=== PATIENT | male | born 1945 | race Caucasian/White ===

== ENCOUNTER 2021-04-04 11:00 | Outpatient (RCR) | payer MEDICARE, SELFPAY ==
[2021-04-04 11:08] VITALS: BMI 24.3
[2021-04-04 11:16] VITALS: BMI 24.3
== END 2021-06-05 12:29 | disposition home or self-care (01) ==
LOC: ANHDMC 11:00
PROVIDERS: PCP Family Medicine; Visit Provider Family Medicine
DX: E11.65 Type 2 diabetes mellitus with hyperglycemia (principal); Z71.89 Other specified counseling; Z71.3 Dietary counseling and surveillance
CPT/HCPCS: 97802; G0108

== ENCOUNTER 2021-10-17 10:50 | Outpatient (CLI) | payer MEDICARE, SELFPAY | END 2021-10-17 10:51 | disposition home or self-care (01) | LOC: ANHAUDIO 10:52 | PROVIDERS: PCP Family Medicine; Visit Provider Family Medicine | DX: H90.3 Sensorineural hearing loss, bilateral (principal) | CPT/HCPCS: 92557; 92567 ==

== ENCOUNTER 2022-01-08 10:05 | Outpatient (CLI) | payer MEDICARE, SELFPAY ==
[2022-01-08 10:53] LABS: Anion Gap 5 mmol/L (8-16); Blood Urea Nitrogen 49 mg/dL (9-20); Calcium 8.9 mg/dL (8.4-10.2); Carbon Dioxide 28 mmol/L (22-30); Chloride 106 mmol/L (98-107); Estimated Glomerular Filt Rate 35; Glucose 100 mg/dL (65-110); Potassium 4.9 mmol/L (3.4-5.0); Sodium 139 mmol/L (137-145)
== END 2022-01-08 10:06 | disposition home or self-care (01) ==
LOC: ANHSURGERY 10:10
PROVIDERS: Anesthesiology; PCP Family Medicine; Visit Provider Surgery
DX: Z01.818 Encounter for other preprocedural examination (principal); E11.65 Type 2 diabetes mellitus with hyperglycemia
CPT/HCPCS: 36415; 80048

== ENCOUNTER 2022-01-15 02:05 | Day surgery (SDC) | payer MEDICARE, SELFPAY ==
--- NOTE | 2022-01-04 14:20 | PC.NURSE ---
Addendum entered by Vesta Ramos RN 01/12/22 08:31: SPOKE TO PT'S , AWARE OF NEW DATE/TIME FOR SURGERY. NOTIFIED OF 0900 ARRIVAL, 1100 SURGERY, UP TO 20 OZ CLEAR LIQUIDS UNTIL 0800 AT THE LATEST. VERBALIZED UNDERSTANDING. Addendum entered by Nisa Wilkins RN 01/09/22 14:10: SURGERY RESCHEDULED TO Saturday01/16/22. INSTR PATIENT TO ARRIVE AT 6:30AM FOR SURGERY AT 8:30AM. INSTR TO TAKE NO MEDICATION MORNING OF SURGERY AND TO HOLD ALL VITAMINS/SUPPLEMENTS 3 DAYS PRE-OP- LAST DOSE 01/12/22. NO OTHER CHANGES IN PRE-OP INSTRUCTIONS. ALL REVIEWED WITH PATIENT. HE RELAYS UNDERSTANDING. HE STATES WILL CALL BACK IF SHE HAS QUESTIONS. Addendum entered by Tania Barajas RN 01/04/22 14:24: HIBICLENS SHOWER MORNING OF SURGERY Original Note: Report to the Outpatient Waiting Room, entrance under the [facility] located off [facility], at time 1000 on date _01/12/22 . OR Time: __1200___. - You and your visitor will be asked a series of questions to screen for COVID 19 for your protection. - A mask is required within the hospital. Preoperative COVID Testing Requirements: No COVID Test needed if: (proof is required; if not received patient will have Rapid Test prior to entry) - Patient has received COVID Vaccine at least 14 days prior to procedure date or - Patient has positive COVID test result within last 90 days of surgery date. COVID Test needed if above criteria is not met If not COVID vaccinated a COVID test must be conducted within 72 hours of surgery and patient is asked to isolate self from time of testing until procedure. You will go to the [facility] for your COVID testing. [facility] is located at the corner of [address] [facility]. You will only be called if COVID results are positive and your surgeon may reschedule your elective surgery date. Patients may have clear liquids (water, carbonated beverages, clear teas, apple juice) until 3 hours prior to surgery with a maximum of 20 ounces. - No food from midnight until time of surgery - Infants may have breast milk until 4 hours before surgery, formula 6 hours prior to surgery. - Children will be allowed to drink immediately following surgery. If applicable, please bring a bottle or sippy cup to assist with drinking. Juice, water, soda, and popsicles are readily available. For infants on formula, please bring formula the day of surgery. Pacifiers are allowed. Take the following medications with a SIP of water the morning of surgery: _NONE Medications to discontinue per physician __ALL VITAMINS AND SUPPLEMENTS 3 DAYS PRE OP Date to take last dose___01/08/22 Please no make-up, nail czech, hairspray, perfume, deodorant, or body powder the day of surgery. No jewelry (including any body piercings) or valuables the day of surgery, leave them at home. Please take a shower or bath the night before, or the morning of, surgery with an antibacterial soap. Wear comfortable, loose fitting clothing. Children are encouraged to wear pajamas. - Jewelry must be removed prior to entering the operating room. Rings and piercings that are not removed may be cut off. - The hospital will not accept responsibility for valuables. - Please leave all valuables, including medications, at home the day of surgery. If you are going home after surgery, a licensed services delivery driver must drive you home. - NO public transportation without another adult. - We recommend that an adult stay with you for 24 hours following discharge. - We also recommend that you do not drive, make important decision, drink alcoholic beverages, or take any drugs that were not prescribed by your health care provider for at least 24 hours after your discharge time. For Pediatric surgeries, we recommend two adults accompany the child home (only one inside the building at
[2022-01-04 14:30] VITALS: BMI 23.9
[2022-01-15] VITALS (8 sets, daily range): BP systolic 96–148; BP diastolic 59–76; PULSE 43–50; RESP 16–18; TEMP 36.2; O2SAT 100
--- NOTE | 2022-01-15 08:09 | WPDANESEPPF ---
Anes - Initial Pre Proc Eval Procedure: Operation Date: 01/15/22 11:00 Proposed Procedures p Right Inguinal Hernia Repair - Vicente Still MD Date/Time: 01/15/22 08:09 Surgeon: Vicente Still MD Pre Op Diagnosis: right inguinal hernia Patient Data Age: 76 Gender: M Height: 1.7 m Weight: 69.4 kg Allergies Allergy/AdvReac Type Severity Reaction Status Date / Time No Known Allergies Allergy Verified 01/15/22 09:21 Home Medications Medication Instructions Recorded Confirmed Type aspirin 81 mg tablet,delayed 81 mg PO DAILY 08/13/19 01/15/22 History release biotin 5 mg capsule 5 mg PO DAILY 08/13/19 01/15/22 History calcium 650 mg-vitamin D3 12.5 1 tablet PO DAILY 08/13/19 01/15/22 History mcg-vitamin K 40 mcg chewable tablet cholecalciferol (vitamin D3) 625 25,000 unit PO WEEKLY 08/13/19 01/15/22 History mcg (25,000 unit) capsule insulin human U-100 NPH-regulr See Rx Instructions SUBCUT DAILY 02/07/21 01/15/22 Rx 70-30 mix 100 unit/mL subcutaneous #30 ml susp insulin syringe-needle U-100 0.3 #100 02/07/21 01/15/22 Rx mL 29 gauge x 1/2 lancets #100 02/07/21 01/15/22 Rx blood sugar diagnostic #100 02/15/21 01/15/22 Rx blood-glucose meter #1 02/15/21 01/15/22 Rx atorvastatin 40 mg tablet 40 mg PO DAILY #90 tablet 06/05/21 01/15/22 Rx losartan 100 mg tablet 100 mg PO DAILY #90 tablet 11/22/21 01/15/22 Rx Patient hx anesthesia problems: none Family hx anesthesia problems: none Results Review: All pre-operative results and documents have been reviewed as part of the pre-operative evaluation. 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 Memory loss Pure hypercholesterolemia, unspecified Screen for colon cancer Screening for prostate cancer Toe pain Type 2 diabetes mellitus with hyperglycemia Surgical History Surgical History History of inguinal hernia repair [facility] 07/11 OA ASHLEY Family History Family History Sibling Family history of alcoholism Family history of lung cancer Father Family history of cardiovascular disease Other Diabetes mellitus Hypertension Social History Social History Smoking packs per day: 1 Smoking cigarettes per day: 20.0 Years smoked: 30 Smoking pack-years: 30.00 Smoking status: Former smoker Tobacco type: cigarettes Second hand tobacco smoke exposure: Yes Smoking end date: 09/23/85 Alcohol intake: current Substance use: never Substance use type: does not use Living arrangements: with family 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 Informed Consent: The patient's anesthetic plan and its attendant risks an
[2022-01-15] MEDS: ACETAMINOPHEN 500 MG TABLET 1000 MG PO (09:48)
[2022-01-15] MEDS: LACTATED RINGERS 1,000 ML 30 ML IV CONT ×2 (09:48→14:02)
[2022-01-15] MEDS: KETOROLAC 15 MG/ML VIAL (*BKC) IV PUSH (09:49)
[2022-01-15 09:54] LABS: Glucose Point of Care 86 mg/dl (65-105)
--- NOTE | 2022-01-15 11:10 | WPDHPUPDATE1 ---
History and Physical Update Update Date/Time: 01/15/22 11:10 History and Physical has been reviewed, including an updated exam of the patient. There are NO changes in the patient's condition. Risks, benefits, and alternatives of a an open right inguinal hernia repair have been discussed and questions answered. Patient agrees to proceed with procedure.
[2022-01-15] MEDS: ceFAZolin 2 GM/D5W 50 ML 2 GM/50 ML BAG IVPB (11:33)
--- NOTE | 2022-01-15 14:19 | W.PM.PROC2 ---
Procedure Note - Detailed Date of Procedure 01/15/22 Pre-op Diagnosis right inguinal hernia Post-op Diagnosis Other (Right indirect inguinal hernia (with incarcerated portion of appendix).) Procedure Performed Open right inguinal hernia repair with mesh (modified Tobin type) Surgeon Vicente Still MD Assembler Crimper FABIANO Hinkle, OR 1st assist Anesthesia Local (With 1% xylocaine with epinephrine mixed with 0.5% Marcaine plain) and Other (G IV S) Indications Bulging in pain with some activities Findings Patient had indirect inguinal hernia the medial side of the cord structures. Upon opening the hernia sac a portion of the appendix was found adhered to the inside of the indirect inguinal hernia sac. Description of Procedure The patient was placed in the supine position on the operating room table. After induction of adequate GIVS anesthesia by [facility] Anesthesia staff, we carefully prepped the entire lower abdomen with chlorhexidine and scrotum and penis with Betadine. One sterile towel was placed underneath the scrotum. Four towels were placed around the right lower quadrant. Following this, a time-out was performed with the surgical team and the patient's surgical procedure and site was confirmed. We then carefully outlined a curvilinear incision in the right groin area and a curvilinear incision was made after introducing a mixture of local anesthetic, using 0.5% Marcaine plain and 1% Xylocaine with epinephrine as both an ilioinguinal nerve block and at the incision site with a 25 gauge needle. Following this, I carefully made the incision, and carried it down through the subcutaneous tissue. Dee's fascia was incised and then we identified the external oblique aponeurosis and the external ring. Following this, the same mixture of local anesthetic was infiltrated underneath the external oblique aponeurosis and this was split in the direction of it's fibers with a #15 blade initially and then using Metzenbaum scissors. I then opened the external oblique through the external ring and incised this somewhat posteriorly and superiorly exposing the ilioinguinal nerve. This nerve was carefully preserved laterally and then I carefully and meticulously dissected out the cord structures at the level of the pubic tubercle. I then surrounded these structures at the level of pubic tubercle and placed a Wilfrido drain around them. I then carefully dissected the hernia sac up and off of the cord tissues on their anterior medial side, and brought it up and out of the incision. We carefully dissected the layers and cremasteric tissues off the hernia sac and then eventually opened the hernia sac. Holding this up with 4 hemostats, I carefully dissected it off the cord structures, being careful to avoid injury to the Pampiniform plexus veins, the spermatic artery and the vas. Interestingly, upon opening the sac it was noted that there were a few thin adhesions holding the tip of the non-inflamed appendix to the inside wall of the indirect hernia sac. These were carefully lysed and the appendix reduced back into the the abdomen. Once the hernia sac was carefully dissected back to the level of the internal ring, a transfixation suture of 2-0 silk was used to close the neck of the hernia sac and following this, a 2 - 0 silk tie was placed just below this, tied tight, and then distally the hernia sac was amputated with Bovie cautery. It was then passed off the field for pathologic evaluation. Following this, we took care to recreate an appropriate inguinal canal. This was done by carefully dissecting from the internal ring down to the pubic bone, and dissecting away any cremasteric tissue. A running suture of 0 Prolene was placed in the pubic tubercle and run up to the internal ring, approximating the Transversalis fascia to the ilioinguinal ligament. Once this was done, we then opened the Bard preshaped keyhole polypropylene mesh and I then
--- NOTE | 2022-01-15 14:47 | SUR.PHASEII ---
PATIENT AGITATED; REMOVED HIS PIV AND MONITORS, TRYING TO GET OFF THE STRETCHER. HERE NOW. PATIENT CALM NOW, ORIENTED X 3; NO LONGER AGITATED.
--- NOTE | 2022-01-15 15:57 | SUR.PHASEII ---
PATIENT DRINKING SEVERAL CUPS OF COFFEE. PATIENT WANTS TO WALK BUT IS ONLY ABLE TO STAND BRIEFLY; STILL A LITTLE WOBBLY.
[2022-01-15 17:17] LABS: Glucose Point of Care 146 mg/dl (65-105)
--- NOTE | 2022-01-15 17:26 | SUR.PHASEII ---
took pt over around 1700. pt urinated in bathroom. pt gait was a bit unstesdy. but after several walks with pt around outpt surgery area, his , myself and collegues, all saw his progression to baseline walking and we all feel comfortable with him going home.
== END 2022-01-15 17:45 | disposition home or self-care (01) ==
PROVIDERS: PCP Family Medicine; Visit Provider Surgery
PROC: (CPT 49505; principal; 2022-01-15 11:00)
DX: K40.90 Unilateral inguinal hernia, without obstruction or gangrene, not specified as recurrent (principal); K66.0 Peritoneal adhesions (postprocedural) (postinfection); I12.9 Hypertensive chronic kidney disease with stage 1 through stage 4 chronic kidney disease, or unspecified chronic kidney disease; N18.30 Chronic kidney disease, stage 3 unspecified; E11.65 Type 2 diabetes mellitus with hyperglycemia; E11.22 Type 2 diabetes mellitus with diabetic chronic kidney disease; H91.90 Unspecified hearing loss, unspecified ear; D64.9 Anemia, unspecified; Z79.4 Long term (current) use of insulin; Z79.82 Long term (current) use of aspirin; Z87.891 Personal history of nicotine dependence
CPT/HCPCS: 49505; 36415; 80048; 82948; 88302; A9270; C1781; J0690; J1100; J1885; J2250; J2370; J2405; J2704; J3010; J7120

== ENCOUNTER 2022-04-24 10:43 | Outpatient (CLI) | payer MEDICARE, SELFPAY ==
--- NOTE | ~2022-04-24 | MR_ITS ---
EXAMINATION: MR brain/brain stem wo con DATE: 04/24/2022 11:32 INDICATION: Memory loss. TECHNIQUE: Magnetic resonance imaging (MRI) of the brain and brainstem was performed without intraven ous contrast. COMPARISON: None. FINDINGS: There are scattered areas of nonspecific increased T2-weighted signal intensity in the cere bral white matter, which is within normal limits for the patient's age. There is no intracranial hemo rrhage, acute infarction, or abnormal intracranial mass lesion. The ventricles are normal in size. Th e paranasal sinuses are clear. The orbits are normal. The mastoid air cells are normal. IMPRESSION: 1. Normal aging brain. Reviewed, dictated and finalized at location A. IMPRESSION: 1. Normal aging brain.
== END 2022-04-24 10:44 | disposition home or self-care (01) ==
PROVIDERS: PCP Family Medicine; Visit Provider Family Medicine
DX: R41.3 Other amnesia (principal)
CPT/HCPCS: 70551

== ENCOUNTER 2022-12-24 15:22 | Emergency (ER) | payer MEDICARE, SELFPAY ==
[2022-12-24 16:21] VITALS: BP 119/62; PULSE 64; RESP 16; TEMP 36.9; O2SAT 99
--- NOTE | 2022-12-24 22:22 | PC.NURSE ---
Pt called for vitals, no answer
== END 2022-12-24 22:22 | disposition left against medical advice (07) ==
PROVIDERS: PCP Family Medicine
DX: S01.111A Laceration without foreign body of right eyelid and periocular area, initial encounter (principal)
CPT/HCPCS: 99199

== ENCOUNTER 2023-10-18 06:48 | Outpatient (CLI) | payer MEDICARE, SELFPAY ==
[2023-10-18 07:21] LABS: Hematocrit 38.8 % (42.0-52.0); Hemoglobin 12.4 g/dL (14.0-18.0); Mean Corpuscular Hemoglobin 32.2 pg (26-34); Mean Corpuscular Volume 100.8 fl (80-100); Mean Platelet Volume 9.4 fl (7.4-10.4); Platelet Count Result 152 k/mm3 (150-375); Red Blood Count 3.85 M/mm3 (4.6-6.20); Red Cell Distribution Width 13.2 % (11.5-14.5)
[2023-10-18 07:30] LABS: Alanine Aminotransferase 45 U/L (6-50); Albumin Level 3.7 g/dL (3.5-5.1); Alkaline Phosphatase 77 U/L (38-126); Aspartate Amino Transferase 46 U/L (17-59); Bilirubin,Total 0.8 mg/dL (0.2-1.3); Cholesterol 132 mg/dL (0-200); HDL Direct 55 mg/dL; Triglycerides 76 mg/dL (<150)
[2023-10-18 07:41] LABS: LDL Cholesterol Direct 68 mg/dL
[2023-10-18 07:50] LABS: Iron 134 ug/dL (49-181)
[2023-10-18 08:01] LABS: Prostate Specific Antigen 0.3 ng/mL (< OR = 4.0)
[2023-10-18 08:04] LABS: Percent Iron Saturation 48 % (20-50); Vitamin D 25 Hydroxy 40.1 ng/mL
[2023-10-18 09:19] LABS: Microalbumin Urine Random 763.6 mg/L (0-16.7)
== END 2023-10-18 06:49 | disposition home or self-care (01) ==
PROVIDERS: PCP Family Medicine; Visit Provider Family Medicine
DX: Z12.5 Encounter for screening for malignant neoplasm of prostate (principal); E78.2 Mixed hyperlipidemia; E55.9 Vitamin D deficiency, unspecified; N13.8 Other obstructive and reflux uropathy; N40.1 Benign prostatic hyperplasia with lower urinary tract symptoms; R80.9 Proteinuria, unspecified; D64.9 Anemia, unspecified; R74.8 Abnormal levels of other serum enzymes; E11.29 Type 2 diabetes mellitus with other diabetic kidney complication; I12.9 Hypertensive chronic kidney disease with stage 1 through stage 4 chronic kidney disease, or unspecified chronic kidney disease; N18.31 Chronic kidney disease, stage 3a; Z79.4 Long term (current) use of insulin; Z13.220 Encounter for screening for lipoid disorders
CPT/HCPCS: 36415; 80061; 80076; 82043; 82306; 82607; 83540; 83550; 84153; 84443; 85027; G0103

== ENCOUNTER 2023-12-02 15:38 | Emergency (ER) | payer MEDICARE, SELFPAY ==
[2023-12-02] VITALS (7 sets, daily range): BP systolic 103–134; BP diastolic 61–73; PULSE 54–61; RESP 12–18; TEMP 36.1–36.7; O2SAT 99–100
--- NOTE | ~2023-12-02 | CT_ITS ---
EXAMINATION: CT brain wo con DATE: 12/02/2023 19:10 INDICATION: difficulty walking . TECHNIQUE: Computed tomography (CT) of the head was performed without intravenous contrast. The mA wa s adjusted according to patient size. Iterative reconstruction technique was employed. The dose-lengt h product was 605.33 mGy-cm. COMPARISON: MRI brain 04/24/2022. FINDINGS: No acute intracranial hemorrhage or extra-axial fluid collection. No hydrocephalus, mass, or herniation. No acute ischemic infarct. Unremarkable dural venous sinus attenuation. No acute osseous abnormality. The aerated spaces are clear. Moderate atrophy and chronic white matter change. Atherosclerotic intracranial calcification. IMPRESSION: No acute intracranial process. Reviewed, dictated and finalized at location K.
--- NOTE | 2023-12-02 17:03 | ECG_ITS ---
Measurements Intervals Flora Rate: 59 P: 48 ME: 175 QRS: 50 QRSD: 98 T: 31 QT: 390 QTc: 388 Interpretive Statements SINUS BRADYCARDIA BASELINE ARTIFACT- I, III, AVR, AVL BORDERLINE ECG COMPARED TO ECG 07/10/2019 11:10:09 NO SIGNIFICANT CHANGES Electronically Signed On 12-02-2023 20:01:12 CDT by Maxim Mims D.O.
[2023-12-02 17:27] LABS: Basophils Percent Auto 0.4 % (0.2-1.2); Eosinophils Percent Auto 0.2 % (0-4.4); Hemoglobin 12.2 g/dL (14.0-18.0); Immature Granulocyte Absolute 0.06 K/mm3 (0.00-0.031); Immature Granulocyte Percent A 0.5 % (0-0.5); Lymphocytes Absolute Auto 0.63 K/mm3 (0.9-3.2); Lymphocytes Percent Auto 5.7 % (18.3-44.2); Mean Corpuscular HGB Conc 31.3 g/dl (32-36); Mean Corpuscular Hemoglobin 32.1 pg (26-34); Mean Corpuscular Volume 102.6 fl (80-100); Mean Platelet Volume 9.4 fl (7.4-10.4); Monocytes Absolute Auto 0.6 K/mm3 (0.1-0.6); Monocytes Percent Auto 5.3 % (2.6-8.5); Neutrophils Absolute Auto 9.8 K/mm3 (1.3-6.7); Neutrophils Percent Auto 87.9 % (45.5-73.1); Platelet Count Result 155 k/mm3 (150-375); Red Cell Distribution Width 13.4 % (11.5-14.5); White Blood Count 11.1 K/mm3 (4.5-10.0)
[2023-12-02 17:40] LABS: Alanine Aminotransferase 46 U/L (6-50); Albumin Level 3.9 g/dL (3.5-5.1); Alkaline Phosphatase 113 U/L (38-126); Anion Gap 2 mmol/L (8-16); Aspartate Amino Transferase 45 U/L (17-59); Bilirubin,Total 0.4 mg/dL (0.2-1.3); Blood Urea Nitrogen 47 mg/dL (9-20); Calcium 9.1 mg/dL (8.4-10.2); Carbon Dioxide 29 mmol/L (22-30); Chloride 108 mmol/L (98-107); Estimated CRCL calculation 27 ml/min; Estimated Glomerular Filt Rate 33; Glucose 118 mg/dL (65-110); Potassium 4.3 mmol/L (3.4-5.0); Sodium 139 mmol/L (137-145)
[2023-12-02 18:23] LABS: Appearance Urine Clear (Clear); Bacteria Urine None Seen /hpf; Bilirubin Urine Negative (Negative); Blood Urine Negative (Negative); Color Urine Yellow (Yellow); Glucose Urine UA Negative (Negative); Ketones Urine Negative (Negative); Leukocyte Esterase Ur Negative LEU/UL (Negative); Nitrate Urine Negative (Negative); Non Pathogenic Casts 0-2; Protein Urine 3+ mg/dL (Negative); RBC Urine 0-2 /hpf (0-2); Specific Grav Ur 1.018 (1.001-1.035); Squamous Epithelial Cell Urine None seen /hpf (Few); WBC Urine 0-5 /hpf
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
[2023-12-02 18:39] LABS: Add Urine Microscopic? YES
[2023-12-02] MEDS: SODIUM CHLORIDE 0.9% IV 1,000 ML 999 ML IV CONT (18:44)
--- NOTE | 2023-12-02 20:23 | PC.NURSE ---
Patient ambulated to the bathroom w/o assistance and tolerated well
== END 2023-12-02 21:17 | disposition home or self-care (01) ==
PROVIDERS: Emergency Provider Emergency Medicine; PCP Family Medicine
DX: R26.89 Other abnormalities of gait and mobility (principal); F03.90 Unspecified dementia, unspecified severity, without behavioral disturbance, psychotic disturbance, mood disturbance, and anxiety; I12.9 Hypertensive chronic kidney disease with stage 1 through stage 4 chronic kidney disease, or unspecified chronic kidney disease; E11.22 Type 2 diabetes mellitus with diabetic chronic kidney disease; N18.30 Chronic kidney disease, stage 3 unspecified; E78.00 Pure hypercholesterolemia, unspecified; D64.9 Anemia, unspecified; N40.0 Benign prostatic hyperplasia without lower urinary tract symptoms; Z87.891 Personal history of nicotine dependence; Z79.82 Long term (current) use of aspirin; Z79.4 Long term (current) use of insulin; R00.1 Bradycardia, unspecified
CPT/HCPCS: 36415; 70450; 80053; 81001; 85025; 93005; 96360; 99284; J7030

== ENCOUNTER 2024-01-07 10:59 | Outpatient (CLI) | payer MEDICARE, SELFPAY ==
[2024-01-07 12:07] LABS: Free T4 Free Thyroxine 0.76 ng/mL (0.78-2.19)
[2024-01-07 12:18] LABS: Thyroid Stimulating Hormone 0.077 uIU/mL (0.465-4.680)
[2024-01-07 13:00] LABS: Folic Acid > 20.0 ng/mL (2.76->20)
[2024-01-09 21:04] LABS: Vitamin B6 37.6 ng/mL (2.1-21.7)
== END 2024-01-07 11:00 | disposition home or self-care (01) ==
LOC: ANHLAB 11:06
PROVIDERS: PCP Family Medicine; Visit Provider Family Medicine
DX: D64.9 Anemia, unspecified (principal); F03.C0 Unspecified dementia, severe, without behavioral disturbance, psychotic disturbance, mood disturbance, and anxiety; N18.30 Chronic kidney disease, stage 3 unspecified; R41.3 Other amnesia; E11.29 Type 2 diabetes mellitus with other diabetic kidney complication; R80.9 Proteinuria, unspecified; Z79.4 Long term (current) use of insulin
CPT/HCPCS: 36415; 82607; 82746; 84207; 84439; 84443

== ENCOUNTER 2024-01-26 11:18 | Emergency (ER) | payer MEDICARE, SELFPAY ==
--- NOTE | ~2024-01-26 | CT_ITS ---
EXAMINATION: CT facial bones wo con DATE: 01/26/2024 12:14 INDICATION: Right face injury. TECHNIQUE: Computed tomography (CT) of the facial bones and maxillofacial region was performed withou t intravenous contrast. Automated exposure control and iterative reconstruction technique were employ ed. The dose-length product was 280.50 mGy-cm. COMPARISON: None. FINDINGS: Bone alignment is normal. No fracture. The orbits are normal. There is right face soft tiss ue swelling. There is mild mucosal thickening in the paranasal sinuses. The mastoid air cells are nor mal. There is severe cervical spondylosis. IMPRESSION: 1. No fracture. Reviewed, dictated and finalized at location A. IMPRESSION: 1. No fracture.
--- NOTE | ~2024-01-26 | XR_ITS ---
EXAMINATION: XR chest 1V portable DATE: 01/26/2024 13:24 INDICATION: Orthostatic hypotension. TECHNIQUE: A single frontal view of the chest was obtained. COMPARISON: None. FINDINGS: There is a diffuse interstitial pattern, consistent with mild pulmonary edema. No pleural e ffusion or pneumothorax. The heart size is normal. IMPRESSION: 1. Mild pulmonary edema. Reviewed, dictated and finalized at location A. IMPRESSION: 1. Mild pulmonary edema.
--- NOTE | ~2024-01-26 | CT_ITS ---
EXAMINATION: CT brain wo con DATE: 01/26/2024 12:14 INDICATION: Head injury. TECHNIQUE: Computed tomography (CT) of the head was performed without intravenous contrast. The mA wa s adjusted according to patient size. Iterative reconstruction technique was employed. The dose-lengt h product was 529.67 mGy-cm. COMPARISON: Head CT 12/02/2023 FINDINGS: There is no intracranial hemorrhage, acute infarction, or abnormal intracranial mass lesion . There are scattered areas of low attenuation in the cerebral white matter, which is within normal l imits for the patient's age. The ventricles are normal in size. There is mild mucosal thickening in t he paranasal sinuses. The mastoid air cells are normal. IMPRESSION: 1. Normal aging brain. Reviewed, dictated and finalized at location A. IMPRESSION: 1. Normal aging brain.
[2024-01-26 11:20] VITALS: BP 87/54; PULSE 88; RESP 18; TEMP 36.5; O2SAT 94
--- NOTE | 2024-01-26 11:27 | ECG_ITS ---
SEE SCANNED COPY FOR CONFIRMED REPORT MTDD
[2024-01-26] MEDS: SODIUM CHLORIDE 0.9% IV 1,000 ML 999 ML IV CONT ×2 (11:34→13:18)
[2024-01-26 11:37] LABS: Basophils Absolute Auto 0.1 K/mm3 (0.0-0.1); Basophils Percent Auto 0.6 % (0.2-1.2); Eosinophils Percent Auto 0.2 % (0-4.4); Hematocrit 36.4 % (42.0-52.0); Hemoglobin 11.9 g/dL (14.0-18.0); Immature Granulocyte Absolute 0.06 K/mm3 (0.00-0.031); Immature Granulocyte Percent A 0.7 % (0-0.5); Lymphocytes Absolute Auto 1.21 K/mm3 (0.9-3.2); Lymphocytes Percent Auto 14.4 % (18.3-44.2); Mean Corpuscular HGB Conc 32.7 g/dl (32-36); Mean Corpuscular Hemoglobin 32.7 pg (26-34); Mean Platelet Volume 9.3 fl (7.4-10.4); Monocytes Absolute Auto 0.6 K/mm3 (0.1-0.6); Neutrophils Absolute Auto 6.5 K/mm3 (1.3-6.7); Neutrophils Percent Auto 77.1 % (45.5-73.1); Platelet Count Result 157 k/mm3 (150-375); Red Blood Count 3.64 M/mm3 (4.6-6.20); Red Cell Distribution Width 13.1 % (11.5-14.5); White Blood Count 8.4 K/mm3 (4.5-10.0)
--- NOTE | 2024-01-26 11:38 | ED.FALL ---
HPI - Fall General Chief Complaint: Fall Stated Complaint: glf Time Seen by Provider: 01/26/24 11:22 History of Present Illness HPI Narrative: 78-year-old male presenting to the emergency department for evaluation after having a ground level fall. Patient was walking out of a restaurant and tripped over a curb. Patient did strike his face does have abrasions to his face. EMS was called. Upon arrival emergency department patient does a low blood pressure. Patient denies any recent illnesses. Patient denies any lightheaded or dizziness prior to the fall. Patient does have abrasions to his face but denies any pain or injury. Patient is present with both his and his daughter. states the patient does have an unusual gait at baseline. Related Data Home Medications Medication Instructions Recorded Confirmed aspirin 81 mg tablet,delayed 81 mg PO DAILY 08/13/19 09/05/23 release (Adult Aspirin Regimen) biotin 5 mg capsule 5 mg PO DAILY 08/13/19 09/05/23 calcium 650 mg-vitamin D3 12.5 1 tablet PO DAILY 08/13/19 09/05/23 mcg-vitamin K 40 mcg chewable tablet (Viactiv) cholecalciferol (vitamin D3) 625 25,000 unit PO WEEKLY 08/13/19 09/05/23 mcg (25,000 unit) capsule Allergies Allergy/AdvReac Type Severity Reaction Status Date / Time No Known Allergies Allergy Verified 12/09/23 10:11 Review of Systems Review of Systems: All systems reviewed & are unremarkable except as noted in HPI and below PMFSH Past Medical History Medical History Anemia BMI 23.0-23.9, adult BMI 24.0-24.9, adult BMI 25.0-25.9,adult BMI 26.0-26.9,adult Body mass index [BMI] 25.0-25.9, adult (04/07/19) Body mass index [BMI] 26.0-26.9, adult (07/02/18) Body mass index [BMI] 27.0-27.9, adult (11/15/17) BPH with obstruction/lower urinary tract symptoms Chronic kidney disease, stage III (moderate) Dementia Diabetes Dietary counseling and surveillance (08/07/16) Essential hypertension Hearing loss History of inguinal hernia IDDM (insulin dependent diabetes mellitus) Inguinal swelling Left inguinal hernia [facility] (current) use of insulin Memory loss Pure hypercholesterolemia, unspecified Screen for colon cancer Screening for prostate cancer Toe pain Type 2 diabetes mellitus with hyperglycemia Surgical History Surgical History History of inguinal hernia repair [facility] 07/11 OA ASHLEY History of right inguinal hernia repair Open right inguinal hernia repair with mesh (modified Tobin type) 01/15/22 Family History Family History Sibling Family history of alcoholism Family history of lung cancer Father Family history of cardiovascular disease Mother Dementia Sibling Lung cancer Tobacco abuse Diabetes mellitus Other Hypertension Social History Social History Smoking packs per day: 1 Smoking cigarettes per day: 20.0 Years smoked: 30 Smoking pack-years: 30.00 Smoking status: Former smoker (Quit 2009) Tobacco type: cigarettes Second hand tobacco smoke exposure: Yes Smoking end date: 09/23/85 Alcohol intake: former Substance use: never Substance use type: does not use Do You Feel Safe in your Home?: Yes Lack of Transportation: No Lack of Food: Never True Current Housing: I Have Housing Concerned About Future Housing: No Difficulty Paying Gas/Electric Bills: No Difficulty Paying for Meds: No Currently Unemployed: No Education: Master's Degree or Higher Living arrangements: with family Occupation/Education: retired 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
--- NOTE | 2024-01-26 12:00 | PC.NURSE ---
Pt to CT scan via stretcher at this time, family at bedside, fluids infusing.
[2024-01-26 12:07] LABS: Alanine Aminotransferase 39 U/L (6-50); Alkaline Phosphatase 128 U/L (38-126); Anion Gap 10 mmol/L (4-12); Aspartate Amino Transferase 37 U/L (17-59); Bilirubin,Total 0.7 mg/dL (0.2-1.3); Blood Urea Nitrogen 50 mg/dL (9-20); Calcium 9.5 mg/dL (8.4-10.2); Carbon Dioxide 19 mmol/L (22-30); Chloride 109 mmol/L (98-107); Estimated CRCL calculation 24 ml/min; Estimated Glomerular Filt Rate 29; Glucose 159 mg/dL (65-110); Potassium 4.6 mmol/L (3.4-5.0); Sodium 138 mmol/L (137-145)
[2024-01-26 12:43] VITALS: BP 101/59; PULSE 55
[2024-01-26 12:44] VITALS: BP 111/55; PULSE 73
[2024-01-26 12:45] VITALS: BP 102/62; PULSE 86
[2024-01-26 12:47] VITALS: BP 102/62; PULSE 75; RESP 20; O2SAT 98
[2024-01-26 13:39] LABS: Appearance Urine Clear (Clear); Bacteria Urine None Seen /hpf; Bilirubin Urine Negative (Negative); Blood Urine Negative (Negative); Color Urine Yellow (Yellow); Glucose Urine UA Negative (Negative); Ketones Urine Negative (Negative); Leukocyte Esterase Ur Trace LEU/UL (Negative); Nitrate Urine Negative (Negative); Protein Urine 2+ mg/dL (Negative); RBC Urine 0-2 /hpf (0-2); Specific Grav Ur 1.016 (1.001-1.035); Squamous Epithelial Cell Urine None Seen /hpf (Few); Urobilinogen Urine 0.2 mg/dL (<2.0); WBC Urine 0-5 /hpf (0-3); pH Urine 6.5 (5.0-9.0)
[2024-01-26 13:44] LABS: Add Urine Microscopic? YES
[2024-01-26 13:58] LABS: Influenza A QL RT-PCR Negative (Negative); Influenza B QL RT-PCR Negative (Negative); RSV RNA, RT-PCR Negative (Negative); SARS-CoV-2 RNA PCR Negative (Negative)
[2024-01-26 14:17] VITALS: BP 106/48; PULSE 54; RESP 18; O2SAT 100
== END 2024-01-26 14:50 | disposition home or self-care (01) ==
PROVIDERS: Emergency Provider Emergency Medicine; PCP Family Medicine
DX: S01.511A Laceration without foreign body of lip, initial encounter (principal); S00.81XA Abrasion of other part of head, initial encounter; Z11.52 Encounter for screening for COVID-19; F03.90 Unspecified dementia, unspecified severity, without behavioral disturbance, psychotic disturbance, mood disturbance, and anxiety; I12.9 Hypertensive chronic kidney disease with stage 1 through stage 4 chronic kidney disease, or unspecified chronic kidney disease; E11.22 Type 2 diabetes mellitus with diabetic chronic kidney disease; N18.30 Chronic kidney disease, stage 3 unspecified; E78.00 Pure hypercholesterolemia, unspecified; N40.1 Benign prostatic hyperplasia with lower urinary tract symptoms; D64.9 Anemia, unspecified; Z87.891 Personal history of nicotine dependence; Z79.82 Long term (current) use of aspirin; Z79.4 Long term (current) use of insulin; W10.1XXA Fall (on)(from) sidewalk curb, initial encounter
CPT/HCPCS: 12011; 36415; 70450; 70486; 71045; 80053; 81001; 85025; 87637; 93005; 96360; 96361; 99284; J7030

== ENCOUNTER 2024-02-19 11:41 | Outpatient (CLI) | payer MEDICARE, SELFPAY ==
[2024-02-19 12:30] LABS: Anion Gap 5 mmol/L (4-12); Blood Urea Nitrogen 39 mg/dL (9-20); Calcium 9.3 mg/dL (8.4-10.2); Carbon Dioxide 28 mmol/L (22-30); Chloride 106 mmol/L (98-107); Estimated Glomerular Filt Rate 37; Glucose 122 mg/dL (65-110); Potassium 4.8 mmol/L (3.4-5.0); Sodium 139 mmol/L (137-145)
[2024-02-19 13:02] LABS: Thyroid Stimulating Hormone 0.132 uIU/mL (0.465-4.680)
[2024-02-19 13:45] LABS: Folic Acid > 20.0 ng/mL (2.76->20)
[2024-02-22 11:37] LABS: Vitamin D 1,25 (OH)2 Total 20 pg/mL (18-72); Vitamin D2 1,25 (OH)2 <8 pg/mL; Vitamin D3 1,25 (OH)2 20 pg/mL
== END 2024-02-19 11:42 | disposition home or self-care (01) ==
LOC: ANHLAB 11:43
PROVIDERS: PCP Family Medicine; Referring Provider Nurse Practitioner Family; Visit Provider Psychiatry & Neurology Neurology
DX: G30.9 Alzheimer's disease, unspecified (principal); F02.818 Dementia in other diseases classified elsewhere, unspecified severity, with other behavioral disturbance; E55.9 Vitamin D deficiency, unspecified; E78.2 Mixed hyperlipidemia; N28.9 Disorder of kidney and ureter, unspecified
CPT/HCPCS: 36415; 80048; 82607; 82652; 82746; 84443

== ENCOUNTER 2024-03-31 14:30 | Outpatient (RCR) | payer MEDICARE, SELFPAY ==
--- NOTE | 2024-03-02 13:23 | OPREHPOC ---
Outpatient Therapy Plan of Care This is a Multidisciplinary Plan of Care that may contain components documented by all disciplines (PT, OT, and ST.) PT Problem 1 PT Problem #1 Knowledge Deficit PT Goal 1 Goal * and pt educated on HEP Target Visit 8 PT Problem 2 PT Problem #2 Impaired Strength PT Goal 1 Goal increase strength of trunk and LE's, to improve safety and mobility 1* with mat exercises, pt control motions x 20 reps Target Visit 8 PT Problem 3 PT Problem #3 Impaired Functional Mobility PT Goal 1 Goal improve balance and mobility skills, to decrease risk for further falls 1* Singleton balance score of 52/56 2* pt and report NO falls 3* with walking 300', pt have straight path Target Visit 8
--- NOTE | 2024-03-02 13:23 | PTOPEVAL1 ---
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 Reported Pain Level Pain Score 0: Self Report Assessment PT Clinical Summary Randal has the diagnosis of weakness and falls. He has fallen 4 times in the past 6 months. His medical history includes HTN, diabetes and dementia. His assists him at home and reports she only leaves him alone at home for 15- 20 min. LE functional scale rating of 58% limitation in activity level. With the evaluation, 5 reps sit/stand time of 14 seconds= normal; 2 minute walking test distance of 450'; Singleton balance score of 46/56; is is impulsive and has decreased safety awareness with mobility; with the mat exercises, he does not control his trunk or LE with the movements. He is cooperative and follows simple commands, with decreased body awareness of his movements. Skilled PT services are indicated for therapeutic exercises and activities to increase LE and trunk strength and motor control. With education for HEP and safety awareness. Plan of Care Interventions Gait Training,Neuro Re-education,Patient & Education,Therapeutic Activities,Therapeutic Exercise PT Services Indicated Yes Treatment Frequency and 2x/wk for 8 visits Duration These treatments will address the objective and functional deficits as defined above. The patient will be advanced safely and appropriately in order for the patient to progress towards his/her prior level of function. Additional exercises will be introduced and as well as a comprehensive home exercise program upon discharge, if needed, ?to ensure carryover of functional gains achieved in the clinic. This treatment plan has been reviewed and agreement upon by the patient.
--- NOTE | 2024-03-13 11:38 | PCPTNOTE ---
Pt. did not show for her appointment this date. Called pt. and pt. did not realize she had an appointment. Pt. was made aware of her next appointment on 03/16
--- NOTE | 2024-03-31 15:18 | PTOPDC ---
Assessment and note entered by Sherry Hernandez, PT Discharge Report Assessment Status Discharge Diagnosis falls, weakness Subjective Information have been doing the exercises at home; have not had any falls since coming for therapy; ok with finishing with therapy now; Reported Pain Level Pain Score 0: Self Report Assessment PT Clinical Summary Randal has received 8 PT sessions. Compared to the initial evaluation: Singleton balance test score from 46 to 52/56; increase strength and motor control with mat LE exercises; improved walking pattern-- more upright trunk and a straight path of walking; education completed with pt and for HEP. The goals were achieved. Discharge PT services. Plan of Care PT Services Indicated No
== END 2024-04-01 09:11 | disposition home or self-care (01) ==
LOC: ANHPT 14:30
PROVIDERS: PCP Family Medicine; Visit Provider Nurse Practitioner Family
DX: R53.1 Weakness (principal); W19.XXXA Unspecified fall, initial encounter
CPT/HCPCS: 97110; 97112; 97116; 97161; 97530

== ENCOUNTER 2024-05-17 18:18 | Emergency (ER) | payer MEDICARE, SELFPAY ==
[2024-05-17] VITALS (9 sets, daily range): BP systolic 146–166; BP diastolic 73–142; PULSE 57–62; RESP 12–17; TEMP 36.8; O2SAT 99–100
--- NOTE | ~2024-05-17 | CT_ITS ---
EXAMINATION: CT brain wo con DATE: 05/17/2024 19:33 INDICATION: Confusion . TECHNIQUE: Computed tomography (CT) of the head was performed [without] intravenous contrast. The mA was adjusted according to patient size. Iterative reconstruction technique was employed. The dose-orlin gth product was 605.33 mGy-cm. COMPARISON: 01/26/24. FINDINGS: No acute intracranial hemorrhage or extra-axial fluid collection. No hydrocephalus, mass, or herniation. No acute ischemic infarct. Unremarkable dural venous sinus attenuation. No acute osseous abnormality. The aerated spaces are clear. Moderate atrophy and mild chronic white matter change. Atherosclerotic intracranial calcification. IMPRESSION: No acute intracranial process. Reviewed, dictated and finalized at location K.
--- NOTE | 2024-05-17 19:07 | ED.GENADULT ---
HPI - General Adult General Chief complaint: Psychiatric Symptoms Stated complaint: SI-dementia Time Seen by Provider: 05/17/24 19:03 History of Present Illness HPI narrative: Patient is a 79-year-old male who presents to the emergency department this evening accompanied by his daughter and due to concern for worsening dementia. states that the patient was diagnosed with dementia approximately 3 years ago and within the past few weeks she has noticed a worsening decline. Patient is able to recognize that his daughter is present in the room with him when asked regarding his he states that she is a very pleasant lady and that their relationship is friends, good friends. states that he does not recognize her as his . Today he made a statement stating that he did not want to live anymore and if he had a gun he would shoot himself. When asked regarding these statements, patient denies all of them. Patient states that he does not have any suicidal or homicidal ideations, does not wish to harm himself or anyone else. Denies any history of suicidal homicidal ideations. No history of previous psychiatric admissions. He has no complaints at this time and states that he does not know why he is in the emergency department. No additional symptoms or concerns at this time. Related Data Home Medications Medication Instructions Recorded Confirmed aspirin 81 mg tablet,delayed 81 mg PO DAILY 08/13/19 03/18/24 release (Adult Aspirin Regimen) biotin 5 mg capsule 5 mg PO DAILY 08/13/19 03/18/24 calcium 650 mg-vitamin D3 12.5 1 tablet PO DAILY 08/13/19 03/18/24 mcg-vitamin K 40 mcg chewable tablet (Viactiv) cholecalciferol (vitamin D3) 625 25,000 unit PO WEEKLY 08/13/19 03/18/24 mcg (25,000 unit) capsule Allergies Allergy/AdvReac Type Severity Reaction Status Date / Time No Known Allergies Allergy Verified 03/16/24 10:09 Review of Systems Review of Systems: All systems are reviewed and are negative unless stated otherwise in the HPI. [facility] Past Medical History Medical History Anemia BMI 25.0-25.9,adult Body mass index [BMI] 25.0-25.9, adult (04/07/19) Body mass index [BMI] 26.0-26.9, adult (07/02/18) Body mass index [BMI] 27.0-27.9, adult (11/15/17) BPH with obstruction/lower urinary tract symptoms Chronic kidney disease, stage III (moderate) Dementia Dementia of Alzheimer's type with behavioral disturbance Diabetes Dietary counseling and surveillance (08/07/16) Essential hypertension Hearing loss History of inguinal hernia IDDM (insulin dependent diabetes mellitus) Inguinal swelling Left inguinal hernia assisted (current) use of insulin Memory loss Pure hypercholesterolemia, unspecified Right inguinal hernia Screen for colon cancer Screening for prostate cancer Toe pain Type 2 diabetes mellitus with diabetic nephropathy Type 2 diabetes mellitus with hyperglycemia Vitamin D deficiency Surgical History Surgical History History of inguinal hernia repair LIH 07/11 OA ASHLEY History of right inguinal hernia repair Open right inguinal hernia repair with mesh (modified Tobin type) 01/15/22 Family History Family History Sibling Family history of alcoholism Family history of lung cancer Father Family history of cardiovascular disease Mother Dementia Sibling Lung cancer Tobacco abuse Diabetes mellitus Other Hypertension Social History Social History Smoking packs per day: 1 Smoking cigarettes per day: 20.0 Years smoked: 30 Smoking pack-years: 30.00 Smoking status: Former smoker (Quit 2009) Tobacco type: cigarettes Second hand tobacco smoke exposure: Yes Smoking end date: 09/23/85 Alcohol intake:
[2024-05-17 20:40] LABS: Basophils Percent Auto 0.5 % (0.2-1.2); Eosinophils Percent Auto 0.4 % (0-4.4); Immature Granulocyte Absolute 0.04 K/mm3 (0.00-0.031); Immature Granulocyte Percent A 0.5 % (0-0.5); Lymphocytes Absolute Auto 1.41 K/mm3 (0.9-3.2); Lymphocytes Percent Auto 17.8 % (18.3-44.2); Mean Corpuscular HGB Conc 33.3 g/dl (32-36); Mean Corpuscular Hemoglobin 32.9 pg (26-34); Mean Corpuscular Volume 98.7 fl (80-100); Monocytes Absolute Auto 0.8 K/mm3 (0.1-0.6); Monocytes Percent Auto 9.7 % (2.6-8.5); Neutrophils Absolute Auto 5.6 K/mm3 (1.3-6.7); Neutrophils Percent Auto 71.1 % (45.5-73.1); Platelet Count Result 142 k/mm3 (150-375); Red Blood Count 3.95 M/mm3 (4.6-6.20); Red Cell Distribution Width 12.7 % (11.5-14.5); White Blood Count 7.9 K/mm3 (4.5-10.0)
[2024-05-17 20:46] LABS: Add Urine Microscopic? YES; Appearance Urine Clear (Clear); Bacteria Urine None Seen /hpf; Bilirubin Urine Negative (Negative); Blood Urine Negative (Negative); Color Urine Yellow (Yellow); Glucose Urine UA Negative (Negative); Ketones Urine Negative (Negative); Leukocyte Esterase Ur Negative LEU/UL (Negative); Nitrate Urine Negative (Negative); Non Pathogenic Casts 0-2; Protein Urine 2+ mg/dL (Negative); RBC Urine 0-2 /hpf (0-2); Specific Grav Ur 1.014 (1.001-1.035); Squamous Epithelial Cell Urine None Seen /hpf (Few); WBC Urine 0-5 /hpf (0-3)
[2024-05-17 20:52] LABS: Acetaminophen < 10 ug/mL (10-30); Ethanol < 10 mg/dL (<10); Salicylate < 1.0 mg/dL (2-20)
[2024-05-17 21:23] LABS: Thyroid Stimulating Hormone 0.141 uIU/mL (0.465-4.680)
[2024-05-17 22:06] LABS: Alanine Aminotransferase 38 U/L (6-50); Albumin Level 3.9 g/dL (3.5-5.1); Alkaline Phosphatase 83 U/L (38-126); Anion Gap 10 mmol/L (4-12); Aspartate Amino Transferase 36 U/L (17-59); Bilirubin,Total 0.4 mg/dL (0.2-1.3); Blood Urea Nitrogen 43 mg/dL (9-20); Calcium 9.2 mg/dL (8.4-10.2); Carbon Dioxide 23 mmol/L (22-30); Chloride 106 mmol/L (98-107); Estimated CRCL calculation 26 ml/min; Estimated Glomerular Filt Rate 35; Glucose 106 mg/dL (65-110); Sodium 139 mmol/L (137-145)
[2024-05-17 22:20] LABS: Amphetamine Screen Urine Negative (Negative); Barbiturate Screen Urine Negative (Negative); Benzodiazepines Screen Urine Negative (Negative); Cannabinoid Screen Urine Negative (Negative); Cocaine Screen Urine Negative (Negative); Methadone Screen Urine Negative (Negative); Opiate Screen Urine Negative (Negative); Phencyclidine Screen Urine Negative (Negative)
[2024-05-17 22:38] LABS: Influenza A QL RT-PCR Negative (Negative); Influenza B QL RT-PCR Negative (Negative); RSV RNA, RT-PCR Negative (Negative); SARS-CoV-2 RNA PCR Negative (Negative)
--- NOTE | 2024-05-17 23:46 | PC.NURSE ---
care and report given to FABIANO Gotti. all questions answered.
--- NOTE | 2024-05-17 23:47 | PC.NURSE ---
Crisis team came to ED at 2320 and made safety plan with patient. provided resources to family for any assistance with memory care.
== END 2024-05-18 01:23 | disposition home or self-care (01) ==
PROVIDERS: Emergency Provider Emergency Medicine; PCP Family Medicine
DX: F03.90 Unspecified dementia, unspecified severity, without behavioral disturbance, psychotic disturbance, mood disturbance, and anxiety (principal); Z20.822 Contact with and (suspected) exposure to COVID-19; D64.9 Anemia, unspecified; I12.9 Hypertensive chronic kidney disease with stage 1 through stage 4 chronic kidney disease, or unspecified chronic kidney disease; E11.22 Type 2 diabetes mellitus with diabetic chronic kidney disease; N18.30 Chronic kidney disease, stage 3 unspecified; Z79.4 Long term (current) use of insulin; E78.5 Hyperlipidemia, unspecified
CPT/HCPCS: 36415; 70450; 80053; 80307; 81001; 84443; 85025; 87637; 99284

== ENCOUNTER 2024-06-11 07:39 | Outpatient (CLI) | payer MEDICARE, SELFPAY ==
--- NOTE | ~2024-06-11 | US_ITS ---
EXAMINATION: US renal BI DATE: 06/11/2024 08:32 INDICATION: Stage IIIB chronic kidney disease TECHNIQUE: Multiple ultrasound grayscale images of the kidneys were obtained. COMPARISON: 03/14/2016 FINDINGS: The right kidney measures 9.0 x 5.1 x 4.6 cm. The left kidney measures 7.5 x 4.6 x 4.3 cm. The kidney s demonstrate normal echogenicity. There is no hydronephrosis in either kidney. No stones identified . Bilateral ureteral jets visualized mid bladder on color Doppler. No interval change in nodular impr ession upon the base of the bladder by the prostate which largely obscured by shadowing from the more anterior pubic bones. IMPRESSION: 1. Normal kidneys without hydronephrosis. 2. Stable appearance of nodular impression upon the base of the bladder by the partially obscured pro state. Reviewed, dictated and finalized at location B. IMPRESSION: 1. Normal kidneys without hydronephrosis. 2. Stable appearance of nodular impression upon the base of the bladder by the partially obscured prostate.
== END 2024-06-11 07:40 | disposition home or self-care (01) ==
PROVIDERS: PCP Family Medicine; Visit Provider Internal Medicine Nephrology
DX: N18.32 Chronic kidney disease, stage 3b (principal)
CPT/HCPCS: 76775

== ENCOUNTER 2024-08-25 09:44 | Outpatient (CLI) | payer MEDICARE, SELFPAY ==
[2024-08-25 10:19] LABS: Hematocrit 38.4 % (42.0-52.0); Hemoglobin 12.1 g/dL (14.0-18.0); Mean Corpuscular HGB Conc 31.5 g/dl (32-36); Mean Corpuscular Hemoglobin 31.9 pg (26-34); Mean Corpuscular Volume 101.3 fl (80-100); Mean Platelet Volume 9.2 fl (7.4-10.4); Platelet Count Result 159 k/mm3 (150-375); Red Blood Count 3.79 M/mm3 (4.6-6.20); Red Cell Distribution Width 13.2 % (11.5-14.5); White Blood Count 7.6 K/mm3 (4.5-10.0)
[2024-08-25 10:25] LABS: Add Urine Microscopic? YES; Appearance Urine Clear (Clear); Bacteria Urine None Seen /hpf; Bilirubin Urine Negative (Negative); Blood Urine Negative (Negative); Color Urine Yellow (Yellow); Glucose Urine UA Negative (Negative); Ketones Urine Negative (Negative); Leukocyte Esterase Ur Negative LEU/UL (Negative); Nitrate Urine Negative (Negative); Non Pathogenic Casts 0-2; Protein Urine 2+ mg/dL (Negative); RBC Urine 0-2 /hpf (0-2); Specific Grav Ur 1.017 (1.001-1.035); Squamous Epithelial Cell Urine None Seen /hpf (Few); Urobilinogen Urine 0.2 mg/dL (<2.0); WBC Urine 0-5 /hpf (0-3); pH Urine 5.5 (5.0-9.0)
[2024-08-25 10:31] LABS: Anion Gap 4 mmol/L (4-12); Blood Urea Nitrogen 50 mg/dL (9-20); Calcium 9.2 mg/dL (8.4-10.2); Carbon Dioxide 29 mmol/L (22-30); Chloride 107 mmol/L (98-107); Creatine Kinase 331 U/L (55-170); Estimated Glomerular Filt Rate 31; Glucose 163 mg/dL (65-110); Potassium 4.4 mmol/L (3.4-5.0); Sodium 140 mmol/L (137-145)
[2024-08-25 10:38] LABS: Complement C3 89 mg/dL (88-165)
[2024-08-25 10:40] LABS: Creatinine Urine 96.6 mg/dL; Total Protein Urine Random 87 mg/dL
[2024-08-25 10:44] LABS: Parathyroid Intact 29.7 pg/mL (14.5-75.2)
[2024-08-25 11:04] LABS: Erythrocyte Sedimentation Rate 19 mm/hr (0-20)
[2024-08-26 12:28] LABS: Complement Total CH50 >60 U/mL (31-60)
[2024-08-26 14:24] LABS: Lambda Light Chain 24.5 mg/L (5.7-26.3)
[2024-08-26 18:33] LABS: Immunofixation, Serum Normal pattern.
== END 2024-08-25 09:45 | disposition home or self-care (01) ==
LOC: ANHLAB 09:46
PROVIDERS: PCP Family Medicine; Visit Provider Internal Medicine Nephrology
DX: N18.32 Chronic kidney disease, stage 3b (principal); E78.2 Mixed hyperlipidemia
CPT/HCPCS: 36415; 80069; 81001; 82550; 82570; 83883; 83970; 84156; 85027; 85652; 86038; 86039; 86160; 86162; 86334

== ENCOUNTER 2024-08-28 11:32 | Outpatient (CLI) | payer MEDICARE, SELFPAY ==
[2024-08-28 13:21] LABS: Total Volume 24 Hour Urine 1350 ml; Urea Nitrogen 24 Hour Urine 9.8 G/DAY (12-20)
== END 2024-08-28 11:33 | disposition home or self-care (01) ==
PROVIDERS: PCP Family Medicine; Visit Provider Internal Medicine Nephrology
DX: N18.32 Chronic kidney disease, stage 3b (principal)
CPT/HCPCS: 81050; 84540; 86335

== ENCOUNTER 2024-12-31 08:32 | Outpatient (CLI) | payer MEDICARE, SELFPAY ==
--- OUTSIDE RECORDS SUMMARY | 2024-12-31 08:38 | XMS_ITS | Clinical Summary ---
Author Organization [facility] Address [address] [place] [phone] Phone Care Team Providers Care Vendor Manager Name Role Phone Unavailable Primary Care Provider Unavailabl e Medications atorvastatin (LIPITOR) 20 MG tablet 1 tab/cap qday 0 03/11/2017 Active losartan (COZAAR) 100 MG tablet 1 tab/cap qday 0 03/10/2017 Active insulin lispro protamine-insul in lispro (HumaLOG MIX 75/25) (75-25) 100 UNIT/ML suspension as directed 0 03/10/2017 Active Active Problems Problem Noted Date Diagnosed Date Chronic kidney disease, stage 3 (moderate) 03/11 Type 2 diabetes mellitus wit h other diabetic kidney complication 03/11/2017 Hypertensive chronic kidney disease with stage 1 through stage 4 chronic kidney disease, or unspecified chronic kidney disease 03/11/2017 Other hyperlipidemia 03/11/2017 Overview (12/06/2018): Converted unresolved ICD9, potential mismatch. Social History Tobacco Use Types Packs/Day Years Used Date Smoking Tobacco: Never Assessed Sex and Gender Information Value Date Recorded Sex Assigned at Not on file Legal Sex Male 8:07 AM [facility] Gender Identity Not on file Sexual Orientation Not on file Last Filed Vital Signs Vital Sign Reading Time Taken Comments Blood Pressure 134/76 06/19/2017 12:01 AM CDT Sitting, Right Pulse - - Temperature 36.4 C (97.6 F) 06/19/2017 12:01 AM CDT Respiratory Rate 18 03/11/2017 12:0 1 AM CDT Oxygen Saturation - - Inhaled Oxygen Concentration - - Weight 74.4 kg (164 lb) 06/19/2017 12:0 1 AM CDT Height 172.7 cm (5' 8 ) 06/19/2017 12:0 1 AM CDT Body Mass Index 24.94 06/19/2017 12:01 AM CDT Plan of Treatment Not on file
[2024-12-31 09:03] LABS: Hematocrit 37.2 % (42.0-52.0); Hemoglobin 11.8 g/dL (14.0-18.0); Mean Corpuscular HGB Conc 31.7 g/dl (32-36); Mean Corpuscular Hemoglobin 32.1 pg (26-34); Mean Corpuscular Volume 101.1 fl (80-100); Mean Platelet Volume 9.5 fl (7.4-10.4); Platelet Count Result 156 k/mm3 (150-375); Red Blood Count 3.68 M/mm3 (4.6-6.20); Red Cell Distribution Width 12.9 % (11.5-14.5); White Blood Count 7.1 K/mm3 (4.5-10.0)
[2024-12-31 10:37] LABS: Creatinine Urine 106.1 mg/dL; Total Protein Urine Random 88 mg/dL; Ur Ttl Prot Creatinine Ratio 0.83 mg/mg (0-0.20)
[2024-12-31 10:41] LABS: Anion Gap 10 mmol/L (4-12); Blood Urea Nitrogen 46 mg/dL (9-20); Calcium 9.2 mg/dL (8.4-10.2); Carbon Dioxide 24 mmol/L (22-30); Chloride 109 mmol/L (98-107); Estimated Glomerular Filt Rate 29; Glucose 150 mg/dL (65-110); Phosphorus 3.1 mg/dL (2.5-4.5); Potassium 4.5 mmol/L (3.4-5.0); Sodium 143 mmol/L (137-145)
[2024-12-31 11:20] LABS: Parathyroid Intact 33.6 pg/mL (14.5-75.2)
== END 2024-12-31 08:33 | disposition home or self-care (01) ==
PROVIDERS: PCP Family Medicine; Visit Provider Internal Medicine Nephrology
DX: E78.2 Mixed hyperlipidemia (principal); N18.32 Chronic kidney disease, stage 3b
CPT/HCPCS: 36415; 80069; 82570; 83970; 84156; 85027

== ENCOUNTER 2025-07-01 15:30 | Outpatient (CLI) | payer MEDICARE, SELFPAY ==
[2025-07-01 16:40] LABS: Hematocrit 39.2 % (42.0-52.0); Hemoglobin 12.6 g/dL (14.0-18.0); Mean Corpuscular HGB Conc 32.1 g/dl (32-36); Mean Corpuscular Hemoglobin 32.5 pg (26-34); Mean Corpuscular Volume 101.0 fl (80-100); Platelet Count Result 171 k/mm3 (150-375); Red Blood Count 3.88 M/mm3 (4.6-6.20); White Blood Count 8.2 K/mm3 (4.5-10.0)
[2025-07-01 16:51] LABS: Albumin Level 4.2 g/dL (3.5-5.1); Anion Gap 7 mmol/L (4-12); Blood Urea Nitrogen 40 mg/dL (9-20); Calcium 9.4 mg/dL (8.4-10.2); Carbon Dioxide 28 mmol/L (22-30); Chloride 104 mmol/L (98-107); Estimated Glomerular Filt Rate 31; Glucose 119 mg/dL (65-110); Potassium 4.3 mmol/L (3.4-5.0); Sodium 139 mmol/L (137-145)
[2025-07-01 17:03] LABS: Iron 109 ug/dL (49-181)
[2025-07-01 17:11] LABS: Percent Iron Saturation 38 % (20-50)
[2025-07-01 17:26] LABS: Parathyroid Intact 26.9 pg/mL (14.5-75.2)
[2025-07-01 17:43] LABS: Ferritin 111.00 ng/mL (11.1-264)
== END 2025-07-01 15:31 | disposition home or self-care (01) ==
PROVIDERS: PCP Family Medicine; Visit Provider Internal Medicine Nephrology
DX: N18.32 Chronic kidney disease, stage 3b (principal); D63.1 Anemia in chronic kidney disease
CPT/HCPCS: 36415; 80069; 82728; 83540; 83550; 83970; 85027

== ENCOUNTER 2025-07-02 12:14 | Outpatient (CLI) | payer MEDICARE, SELFPAY ==
[2025-07-02 12:56] LABS: Total Protein Urine Random 46 mg/dL; Ur Ttl Prot Creatinine Ratio 0.41 mg/mg (0-0.20)
[2025-07-02 13:19] LABS: MALB Creatinine Ratio 219.3 mg/g (0-30)
== END 2025-07-02 12:15 | disposition home or self-care (01) ==
PROVIDERS: PCP Family Medicine; Visit Provider Family Medicine
DX: E11.21 Type 2 diabetes mellitus with diabetic nephropathy (principal); Z79.4 Long term (current) use of insulin
CPT/HCPCS: 82043; 82570; 84156

== ENCOUNTER 2025-09-07 15:12 | Observation (INO) | payer MEDICARE, SELFPAY ==
--- NOTE | ~2025-09-07 | CT_ITS ---
EXAMINATION: CT brain wo con, 09/08/2025 17:40 INTERNAL CONTROLS ANALYST HISTORY: altered mental status COMPARISON: No comparisons available. Technique: Axial images obtained of the brain without contrast. One or more of the following dose reduction techniques were used: automated exposure control, adjustment of the mA and/or kV according to patient size, use of iterative reconstruction technique. Findings: No acute infarct or parenchymal hemorrhage. No abnormal mass or mass effect. No midline shift. No extra-axial fluid collections. No hydrocephalus. Mastoid air cells unremarkable. Sinuses and orbits unremarkable. No acute fracture. No significant facial or scalp soft tissue swelling evident. No radiopaque foreign body is seen. Impression: 1.No acute intracranial abnormality. Reviewed, dictated and finalized at location P. RNAL CONTROLS ANALYST Impression: 1.No acute intracranial abnormality.
--- NOTE | ~2025-09-07 | XR_ITS ---
XR chest 1V portable INDICATION:ams . REFERENCE: None FINDINGS: A single AP of the chest demonstrates normal heart size. The lungs are clear. There is no evidence of pneumothorax or pleural effusion. IMPRESSION: No acute pulmonary findings. Reviewed, dictated and finalized at location S. ON HEADER
--- NOTE | ~2025-09-07 | CT_ITS ---
CT brain wo con HISTORY:Altered mental status changes COMPARISON: CT head dating back to 12/02/2023. TECHNIQUE: Axial images were obtained of the head without intravenous contrast. FINDINGS: No acute intracranial hemorrhage, mass effect or midline shift. No extra-axial fluid collections. There is generalized atrophy and chronic white matter microangiopathic changes in the periventricular white matter.The calvarium is intact. Sclerotic lesion in the left mastoid is stable.Visualized paranasal sinuses and mastoid air cells are clear. IMPRESSION: No acute intracranial hemorrhage or extra axial fluid collections. All CT scans at this facility are performed using low dose modulation techniques as appropriate to perform exam including the following: automated exposure control; use of iterative reconstruction technique; adjustment of the mA and/or kV according to patient size (this includes techniques or standardized protocols for targeted exams where dose is matched to indication/reason for exam). Reviewed, dictated and finalized at location S. OPERATIONS SUPERVISOR IMPRESSION: No acute intracranial hemorrhage or extra axial fluid collections. All CT scans at this facility are performed using low dose modulation techniqu es as appropriate to perform exam including the following: automated exposure c ontrol; use of iterative reconstruction technique; adjustment of the mA and/or kV according to patient size (this includes techniques or standardized protocol s for targeted exams where dose is matched to indication/reason for exam).
[2025-09-07 15:22] VITALS: BP 136/67; PULSE 73; RESP 18; TEMP 36.4; O2SAT 100
--- NOTE | 2025-09-07 15:46 | ECG_ITS ---
Test Date: 2025-09-07 16:14:22 Measurements Intervals [place] Rate: 68 P: 52 NV: 174 QRS: 65 QRSD: 90 T: 40 QT: 382 QTc: 408 Interpretive Statements SINUS RHYTHM BORDERLINE T WAVE ABNORMALITY- ANTERIOR LEADS BASELINE ARTIFACT- I, III, AVR, AVL, AVF, V1-V4 BORDERLINE ECG No previous ECG available for comparison Electronically Signed On 09-07-2025 20:46:30 RELAY DISPATCHER by Maxim Mims D.O.
--- NOTE | 2025-09-07 15:55 | ED_ITS ---
HPI - Altered Mental Status General Chief Complaint: Altered Mental Status Stated Complaint: altered mental status Time Seen by Provider: 09/07/25 15:19 Source: family Mode of arrival: EMS Limitations: dementia History of Present Illness HPI narrative: This is a 80-year-old male with history of dementia, diabetes, CKD who presents the ED the mess from home for aggressive behavior. Per family, patient has become more aggressive over the last few days to the point that they are unable to take care of him. He does have a history of dementia and they have been able to take previously but getting much difficult to work with. Rehab once this time are wanting placed in a nursing. Related Data Home Medications ?Medication ?Instructions ?Recorded ?Confirmed ?Last Taken ?Type aspirin 81 mg tablet,delayed 81 mg PO DAILY 08/13/19 1 11/03/24 Unknown History release (Adult Aspirin Regimen) Allergies Allergy/AdvReac Type Severity Reaction Status Date / Time No Known Allergies Allergy Verified 09/02/25 07:27 Review of Systems 2 Review of Systems: ROS unobtainable: Yes unobtainable due to mental status PMFSH Past Medical History Medical History Type 2 diabetes mellitus with diabetic nephropathy Vitamin D deficiency Dementia of Alzheimer's type with behavioral disturbance BMI 25.0-25.9,adult Dementia BPH with obstruction/lower urinary tract symptoms Diabetes Right inguinal hernia Hearing loss Inguinal swelling Toe pain Memory loss Anemia Screen for colon cancer Left inguinal hernia Screening for prostate cancer Body mass index [BMI] 25.0-25.9, adult (04/07/19) Body mass index [BMI] 26.0-26.9, adult (07/02/18) Body mass index [BMI] 27.0-27.9, adult (11/15/17) Chronic kidney disease, stage III (moderate) Dietary counseling and surveillance (08/07/16) Essential hypertension IDDM (insulin dependent diabetes mellitus) detention (current) use of insulin Pure hypercholesterolemia, unspecified Type 2 diabetes mellitus with hyperglycemia History of inguinal hernia Surgical History Surgical History History of right inguinal hernia repair Open right inguinal hernia repair with mesh (modified Tobin type) 01/15/22 History of inguinal hernia repair LI 07/11 OA ASHLEY Family History Family History Sibling Family history of alcoholism Family history of lung cancer Father Family history of cardiovascular disease Mother Dementia Sibling Lung cancer Tobacco abuse Diabetes mellitus Other Hypertension Social History Social History Smoking packs per day: 1 Smoking cigarettes per day: 20.0 Years smoked: 30 Smoking pack-years: 30.00 Smoking status: Former smoker (Quit 2009) Tobacco type: cigarettes Second hand tobacco smoke exposure: Yes Smoking end date: 09/23/85 Alcohol intake: former Substance use: never Substance use type: does not use Lack of Transportation: No Lack of Food: Never True Current Housing: I Have Housing Concerned About Future Housing: No Difficulty Paying Gas/Electric Bills: No Difficulty Paying for Meds: No Currently Unemployed: No Education: Master's Degree or Higher Difficulty w/ Childcare or Family Care: No Living arrangements: with family Occupation/Education: retired 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 CARDIOVASCULAR: Regular rate and rhythm without murmurs rubs or gallops. ABDOMINAL: Soft, nontender, nondistended, no rebound or guarding MUSCULOSKELETAl: Moves all extremities. No clubbing, cyanosis or edema. NEURO: AAO x1, intermittently follows commands, normal speech, no focal deficits SKIN:: Warm, dry. No rashes lesions or abrasions PSYCHIATRIC: Normal affect/mood, Course Vital Signs Vital signs: Vital Signs Temperature 97.6 F 09/07/25 15:22 Pulse Rate 73 09/07/25 15:22 Respiratory Rate 18 09/07/25 15:22 Blood Pressure 136/67 09/07/25 15:22 Pulse Oximetry 100 09/07/25 15:22 Oxygen Delivery Room Air 09/07/25 15:22 Temperature 97.6 F 09/07/25 16:01 Pulse Rate 66 09/07/25 16:01 Respiratory Rate 20 09/07/25 16:01 Blood Pressure 131/59 L 09/07/25 16:01 Pulse Oximetry 96 09/07/25 16:01 Oxygen Delivery Room Air 09/07/25 15:22 [facility] Narrative Medical decision making narrative: 80-year-old male Presenting for agitated behavior and senior care placement. On initial evaluation patient was in no acute distress afebrile, hemodynamic stable. Differentials include but are not limited to: Dementia, delirium, UTI, electrolyte abnormality Notable exam findings: A/O x1, no focal deficits I personally reviewed the patient's lab result. Notable lab findings: Anemia at 10.8 down from 12.6 couple months ago. Stable elevated creatinine at 2.1. UA without evidence of a UTI. I personally reviewed the patient's EKGs: Normal sinus rhythm, normal axis, normal intervals, no acute ST or T-wave changes No other complaints for the patient at this time. Family is wanting him placed in a senior care given his increasing agitated behavior. Patient is not agitated at this time. Case was discussed with hospitalist who will admit the patient. Differential Diagnosis Differential Diagnosis: Dementia, delirium, UTI, electrolyte abnormality Lab Data 09/07/25 15:54 09/07/25 15:54 Labs: Lab Results 09/07/25 Range/Units 15:54 WBC 7.4 (4.5-10.0) K/mm3 RBC 3.34 L (4.6-6.20) M/mm3 Hgb 10.8 L (14.0-18.0) g/dL Hct 34.1 L (42.0-52.0) % MCV 102.1 H (80-100) fl MCH 32.3 (26-34) pg MCHC 31.7 L (32-36) g/dl RDW 13.5 (11.5-14.5) % Plt Count 133 L (150-375) k/mm3 MPV 9.5 (7.4-10.4) fl Immature Gran % (Auto) 0.7 H (0-0.5) % Neut % (Auto) 77.1 H (45.5-73.1) % Lymph % (Auto) 13.2 L (18.3-44.2) % [place] % (Auto) 8.2 (2.6-8.5) % Eos % (Auto) 0.3 (0-4.4) % Baso % (Auto) 0.5 (0.2-1.2) % Lymph # (Auto) 0.98 (0.9-3.2) K/mm3 [place] # (Auto) 0.6 (0.1-0.6) K/mm3 Eos # (Auto) 0.0 (0-0.3) K/mm3 Baso # (Auto) 0.0 (0.0-0.1) K/mm3 Abs Immat Gran (auto) 0.05 H (0.00-0.031) K/mm3 Absolute Neuts (auto) 5.7 (1.3-6.7) K/mm3 Absolute Nucleated RBC 0.000 (0.0-0.012) K/mm3 Nucleated RBC % 0.0 (0.0-0.2) % Sodium 142 (137-145) mmol/L Potassium 4.3 (3.4-5.0) mmol/L Chloride 112 H (98-107) mmol/L Carbon Dioxide 24 (22-30) mmol/L Anion Gap 6 (4-12) mmol/L BUN 38 H (9-20) mg/dL Creatinine 2.16 H (0.7-1.3) mg/dL Estim Creat Clear Calc 21 ml/min Estimated GFR 30 L (59 - ) Glucose 226 H (65-110) mg/dL Calcium 9.2 (8.4-10.2) mg/dL Total Bilirubin 0.6 (0.2-1.3) mg/dL AST 38 (17-59) U/L ALT 40 (6-50) U/L Alkaline Phosphatase 83 (38-126) U/L Total Protein 6.3 (6.3-8.2) g/dL Albumin 3.9 (3.5-5.1) g/dL Urine Color Yellow (Yellow) Urine Appearance Clear (Clear) Urine pH 6.0 (5.0-9.0) Ur Specific [place] 1.019 (1.001-1.035) Urine Protein 2+ H (Negative) mg/dL Urine Glucose (UA) Trace H (Negative) mg/dL Urine Ketones Negative (Negative) mg/dL Ur Blood (Man) Negative (Negative) Urine Nitrate Negative (Negative) Urine Bilirubin Negative (Negative) Urine Urobilinogen 1.0 (<2.0) mg/dL Leukocyte Esterase Rfl Negative (Negative) EMELIA/UL Urine RBC 3-5 H (0-2) /hpf Urine WBC 0-5 (0-3) /hpf Ur Squamous Epith Cells None seen (Few) /hpf Urine Bacteria None seen /hpf Urine Casts 0-2 Discharge Plan Discharge Clinical Impression: Severe dementia Qualifiers: Dementia type: unspecified type Dementia behavioral or psychological symptom: w ith agitation Qualified Code(s): F03.C11 - Unspecified dementia, severe, with agitation Patient Disposition: Still a Patient Condition: Stable
[2025-09-07 16:01] VITALS: BP 131/59; PULSE 66; RESP 20; TEMP 36.4; O2SAT 96
[2025-09-07 16:01] LABS: Hematocrit 34.1 % (42.0-52.0); Hemoglobin 10.8 g/dL (14.0-18.0); Immature Granulocyte Percent A 0.7 % (0-0.5); Lymphocytes Absolute Auto 0.98 K/mm3 (0.9-3.2); Mean Corpuscular HGB Conc 31.7 g/dl (32-36); Mean Corpuscular Hemoglobin 32.3 pg (26-34); Mean Corpuscular Volume 102.1 fl (80-100); Nucleated Red Blood Cells Absolute Auto 0.000 K/mm3 (0.0-0.012); Nucleated Red Blood Cells Perc 0.0 % (0.0-0.2); Platelet Count Result 133 k/mm3 (150-375); Red Blood Count 3.34 M/mm3 (4.6-6.20); White Blood Count 7.4 K/mm3 (4.5-10.0)
[2025-09-07 16:03] LABS: Add Urine Microscopic? YES; Appearance Urine Clear (Clear); Glucose Urine UA Trace mg/dL (Negative); Leukocyte Esterase Ur Negative LEU/UL (Negative); Nitrate Urine Negative (Negative); Non Pathogenic Casts 0-2; Specific Grav Ur 1.019 (1.001-1.035)
[2025-09-07 16:20] LABS: Alanine Aminotransferase 40 U/L (6-50); Albumin Level 3.9 g/dL (3.5-5.1); Alkaline Phosphatase 83 U/L (38-126); Anion Gap 6 mmol/L (4-12); Aspartate Amino Transferase 38 U/L (17-59); Bilirubin,Total 0.6 mg/dL (0.2-1.3); Blood Urea Nitrogen 38 mg/dL (9-20); Calcium 9.2 mg/dL (8.4-10.2); Carbon Dioxide 24 mmol/L (22-30); Chloride 112 mmol/L (98-107); Estimated CRCL calculation 21 ml/min; Estimated Glomerular Filt Rate 30; Glucose 226 mg/dL (65-110); Potassium 4.3 mmol/L (3.4-5.0); Sodium 142 mmol/L (137-145); Total Protein 6.3 g/dL (6.3-8.2)
--- NOTE | 2025-09-07 17:28 | WPCEDHO ---
ED Hand Off Checklist All vitals saved:yes IV Site documented:yes All med administrations documented:yes Triage Note Triage Note Pt to ED from home for complaint 09/07/25 15:22 of aggressive behavior. Pt has no complaint on arrival besides he was misbehaving. Pt A&Ox1 which is his baseline. Allergies No Known Allergies Allergy (Verified 09/02/25 07:27) Family History (Last Reviewed 09/07/25 @ 15:58 by Fred Marino DO) Sibling Family history of alcoholism Family history of lung cancer Father Family history of cardiovascular disease Mother Dementia Sibling Lung cancer Tobacco abuse Diabetes mellitus Other Hypertension Interventions/Assessments IV / Saline Lock, Insert Start: 09/07/25 15:11 Freq: Status: Active Protocol: Document 09/07/25 16:01 KL (Rec: 09/07/25 16:02 [facility] [id number]) IV Assessment Peripheral Access Left Antecubital IV Catheter Access Initiated IV Insertion Date 09/07/25 IV Insertion Time 16:02 Catheter Gauge 18 IV Insertion 1 Attempts IV Site Assessment WNL IV Care and WNL Maintenance PA: Neurological Assessment Start: 09/07/25 15:11 Freq: Status: Active Protocol: Document 09/07/25 15:25 KL (Rec: 09/07/25 15:26 [facility] [id number]) Neurological Assessment Level of Alert Consciousness Arousable to Verbal Orientation Oriented to Person,Disoriented to Place,Disoriented to Time Hallucination Type None Unable to Redirect Yes Behavior Behavior Appropriate,Cooperative Patient Able to Comprehend Comprehension Ability to Maintain Normal Balance Facial Symmetry Symmetrical Speech Pattern Clear Ability to Swallow Normal Jovi Coma Scale Eyes Open Verbal Disoriented Motor Follows Commands Jovi Coma Total 14 Score Last Vital Signs Temperature 97.6 F 09/07/25 16:01 Pulse Rate 66 09/07/25 16:01 Respiratory Rate 20 09/07/25 16:01 Pulse Oximetry 96 09/07/25 16:01 Blood Pressure 131/59 L 09/07/25 16:01 Blood Pressure Mean 83 09/07/25 16:01 Oxygen Delivery Room Air 09/07/25 15:22 Weight 59 kg 09/07/25 15:22 Last Result - Abnormals Only RBC 3.34 M/mm3 (4.6-6.20) L 09/07/25 15:54 Hgb 10.8 g/dL (14.0-18.0) L 09/07/25 15:54 Hct 34.1 % (42.0-52.0) L 09/07/25 15:54 MCV 102.1 fl (80-100) H 09/07/25 15:54 MCHC 31.7 g/dl (32-36) L 09/07/25 15:54 Plt Count 133 k/mm3 (150-375) L 09/07/25 15:54 Immature Gran % (Auto) 0.7 % (0-0.5) H 09/07/25 15:54 Neut % (Auto) 77.1 % (45.5-73.1) H 09/07/25 15:54 Lymph % (Auto) 13.2 % (18.3-44.2) L 09/07/25 15:54 Abs Immat Gran (auto) 0.05 K/mm3 (0.00-0.031) H 09/07/25 15:54 Chloride 112 mmol/L (98-107) H 09/07/25 15:54 BUN 38 mg/dL (9-20) H 09/07/25 15:54 Creatinine 2.16 mg/dL (0.7-1.3) H 09/07/25 15:54 Estimated GFR 30 (59-) L 09/07/25 15:54 Glucose 226 mg/dL (65-110) H 09/07/25 15:54 Urine Protein 2+ mg/dL (Negative) H 09/07/25 15:54 Urine Glucose (UA) Trace mg/dL (Negative) H 09/07/25 15:54 Urine RBC 3-5 /hpf (0-2) H 09/07/25 15:54
--- OUTSIDE RECORDS SUMMARY | 2025-09-07 17:48 | XMS_ITS | Clinical Summary ---
Author Organization [facility] Address [address] [place] [phone] Phone Care Team Providers Care Entertainment Centre Manager Name Role Phone Unavailable Primary Care [...] on file Legal Sex Male 8:07 AM [facility] Gender Identity Not on file Sexual Orientation [...] 1 AM CDT Height 172.7 cm (5' 8) 06/19/2017 12:0 1 AM CDT Body Mass Index 24.94 06/19/2017 12:01 AM CDT Plan of Treatment Not on file
[2025-09-07 17:56] VITALS: BMI 21.9; BMI 22.2
--- NOTE | 2025-09-07 18:10 | ADMGEN ---
This patient, Obi Jenkins, was admitted to [facility] Surg Room 322-02. Patient/family oriented to hospital policies and general routines including ID bracelet, bed and alarms, visiting hours, pain management, procedures, bathroom and other care routines, personal items, smoking policy, room service/diet, and visiting hours. Information on how to activate the Rapid Response Team has been discussed. Patient/Family are encouraged to report perceived risks to care and to ask questions if they do not understand what they are told or what they should do. report from sosa in [place].
--- NOTE | 2025-09-07 19:36 | PM.IMHP2 ---
H&P: HPI History of Present Illness Date/Time: 09/07/25 19:36 Chief Complaint: Altered mental status Narrative: This is a 80-year-old male patient who has a history of severe dementia and diabetes. The and daughter has been caring for the patient at home. However, over the last couple days the patient has become more aggressive and more difficult to handle. The takes care from during the day and the daughter states that with him at night. The patient has not been sleeping very well over the last several days and neither has a family. The patient still continues to have a fair appetite. However he has PICA and eats paper, crayons, and other non Food item around the house. It has been more difficult for the family members to take care of the patient. The family feels as if he has become more difficult to care for at home. His H&H is 10.8 and 34.1. His BUN is 38 and creatinine 2.16 which appears to be his baseline. His GFR is 30 which again is is baseline. His blood glucose is 226. He does have a continues glucose monitor. He has 2+ protein and trace glucose in his urine. He only has 3-5 rbc's in his urine and leukocytes were negative. No imaging was performed at this time. The patient is being admitted to observation status on the date of service of 09/07/2025. Review of Systems Review of Systems: The family is providing the information for the history. The patient is attempting to answer questions but is a poor historian. ROS unobtainable: Yes unobtainable due to medical condition and unobtainable due to mental status Constitutional: Constitutional: Reports as per HPI and Reports no additional constitutional complaints Eyes: Eyes: Reports as per HPI and Reports no additional eye complaints ENT: Reports system reviewed and no additional complaints, except as documented and Reports Normal hearing present Cardiovascular: Cardiovascular: Reports no additional cardiovascular complaints Respiratory: Respiratory: Reports as per HPI and Reports no additional respiratory complaints Gastrointestinal: Gastrointestinal: Reports as per HPI and Reports no additional gastrointestinal complaints Musculoskeletal: Musculoskeletal: Reports no additional musculoskeletal complaints Integumentary/Breasts: Skin/Breast: Reports system reviewed and no additional complaints, except as docu Neurologic: Reports system reviewed and no additional complaints, except as documented and Reports Normal hearing present Psychiatric: Psychiatric: Reports no additional psychiatric complaints and Reports as per HPI Hematologic/Lymphatic: Hematologic/Lymphatic: Reports no additional hematologic/lymphatic complaints Allergic/Immunologic: Allergic/Immunologic: Reports no additional allergic/immunologic complaints [facility] Past Medical History Medical History Type 2 diabetes mellitus with diabetic nephropathy Vitamin D deficiency Dementia of Alzheimer's type with behavioral disturbance BMI 25.0-25.9,adult Dementia BPH with obstruction/lower urinary tract symptoms Diabetes Right inguinal hernia Hearing loss Inguinal swelling Toe pain Memory loss Anemia Screen for colon cancer Left inguinal hernia Screening for prostate cancer Body mass index [BMI] 25.0-25.9, adult (04/07/19) Body mass index [BMI] 26.0-26.9, adult (07/02/18) Body mass index [BMI] 27.0-27.9, adult (11/15/17) Chronic kidney disease, stage III (moderate) Dietary counseling and surveillance (08/07/16) Essential hypertension IDDM (insulin dependent diabetes mellitus) landcare officer (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) use of insulin Pure hypercholesterolemia, unspecified Type 2 diabetes mellitus with hyperglycemia History of inguinal hernia Surgical History Surgical History History of right inguinal hernia repair Open right inguinal hernia repair with mesh (modified Tobin type) 01/15/22 History of inguinal hernia repair [facility] 07/11 OA ASHLEY Family History Family History Sibling Family history of alcoholism Family history of lung cancer Father Family history of cardiovascular disease Mother Dementia Sibling Lung cancer Tobacco abuse Diabetes mellitus Other Hypertension Social History Social History (Updated 09/07/25 @ 19:43 by Maryellen Brunson APRN) Social History: He is and lives with his and daughter. He has 2 daughters. 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 Code status: Do not resuscitate Smoking packs per day: 1 Smoking cigarettes per day: 20.0 Years smoked: 30 Smoking pack-years: 30.00 Smoking status: Former smoker Tobacco type: cigarettes Second hand tobacco smoke exposure: Yes Smoking end date: 09/23/85 Alcohol intake: never Substance use: never Substance use type: does not use Lack of Transportation: No Lack of Food: Never True Current Housing: I Have Housing Concerned About Future Housing: No Difficulty Paying Gas/Electric Bills: No Difficulty Paying for Meds: No Currently Unemployed: No Education: Master's Degree or Higher Difficulty w/ Childcare or Family Care: No Living arrangements: with family Occupation/Education: retired 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[employer] Gender identity (if verbalized by the patient): Male Spiritual care concerns: No Meds Home Medications and Allergies Home Medications ?Medication ?Instructions ?Recorded ?Confirmed ?Type aspirin 81 mg tablet,delayed 81 mg PO DAILY 08/13/19 09/07/25 History release (Adult Aspirin Regimen) insulin syringe-needle U-100 0.3 #100 ea 02/07/21 09/07/25 Rx mL 29 gauge x 1/2 (BD Insulin Syringe) insulin human U-100 NPH-regulr 23 unit (0.23 mL) subcut BID #30 mL 11/10/24 09/07/25 Rx 70-30 mix 100 unit/mL subcutaneous susp (Novolin 70/30 U-100 Insulin) losartan 100 mg tablet See Rx Instructions .Route 03/25/25 09/07/25 Rx .COMPLEX #90 tabs tamsulosin 0.4 mg capsule (Flomax) 0.4 mg PO .COMPLEX #90 caps 04/05/25 09/07/25 Rx memantine 10 mg tablet 10 mg PO BID #180 tabs 05/17/25 09/07/25 Rx blood-glucose sensor (FreeStyle #6 ea 08/30/25 09/07/25 Rx Kyree 2 Plus Sensor device) Allergies Allergy/AdvReac Type Severity Reaction Status Date / Time No Known Allergies Allergy Verified 09/07/25 18:37 Vital Signs Vital Signs - 24 hr 09/07/25 15:22 09/07/25 16:01 Temperature 97.6 F 97.6 F Pulse Rate 73 66 Respiratory Rate 18 20 Blood Pressure 136/67 131/59 L Pulse Oximetry 100 96 Oxygen Delivery Room Air Exam Const: General: cooperative, comfortable, no acute distress, well developed, awake, Physically active, average body habitus and well nourished Nutritional Appearance: average body habitus and well nourished Orientation/consciousness: oriented to person HENMT: Head: normal to inspection and No palpable skull fracture present Eyes: General: appearance normal, both eyes and all related structures Alignment and Position: alignment normal Periorbital: periorbital findings normal Eyelids: eyelids normal Conjunctivae: conjunctivae normal Sclera: sclerae normal Cornea: corneas normal Pupils: Equal, round and reactive pupils present and Pupil accommodation reflex normal EOM: EOMs intact bilaterally Neck: Neck: normal visual inspection, full ROM, no lymphadenopathy, trachea midline and supple Chest: Chest palpation & inspection: normal inspection of the chest Resp: Effort & Inspection: normal respiratory effort Auscultation: clear to auscultation bilaterally Percussion: percussion normal Cardio: Palpation: normal PMI Rate: regular rate Rhythm: regular rhythm Heart sounds: S1 normal heart sound present and S2 normal heart sound present Peripheral pulses: Peripheral pulses 2+ throughout GI: Inspection: normal to inspection Percussion: Yes normal to percussion Auscultation: normal bowel sounds Rectal Exam: deferred : General: Yes no CVA tenderness Back/Spine/Pelvis: Back: no CVA tenderness Cervical Spine: cervical ROM normal Skin: General skin exam: normal color Lesions: no lesions Rashes: no rashes Trauma: no lacerations or abrasions Wounds: no wounds Hair: normal Nails: normal Neuro: General: oriented to person Extrem: General: normal to inspection Right upper extremity: normal to inspection and shoulder/upper arm Left upper extremity: normal to inspection and shoulder/upper arm Right lower extremity: normal to inspection Left lower extremity: normal to inspection Psych: Appearance: grossly normal Mental Status: mental status grossly normal Results Labs Labs: Short CBC 09/07/25 Range/Units 15:54 WBC 7.4 (4.5-10.0) K/mm3 Hgb 10.8 L (14.0-18.0) g/dL Hct 34.1 L (42.0-52.0) % Plt Count 133 L (150-375) k/mm3 BMP 09/07/25 15:54 Sodium 142 Potassium 4.3 Chloride 112 H Carbon Dioxide 24 BUN 38 H Creatinine 2.16 H Glucose 226 H Calcium 9.2 Liver Function 09/07/25 Range/Units 15:54 Total Bilirubin 0.6 (0.2-1.3) mg/dL AST 38 (17-59) U/L ALT 40 (6-50) U/L Alkaline Phosphatase 83 (38-126) U/L Albumin 3.9 (3.5-5.1) g/dL Urine 09/07/ Range/Units 15:54 Urine Color Yellow (Yellow) Urine Appearance Clear (Clear) Urine pH 6.0 (5.0-9.0) Ur Specific [place] 1.019 (1.001-1.035) Urine Protein 2+ H (Negative) mg/dL Urine Glucose (UA) Trace H (Negative) mg/dL Attestation: I personally reviewed all lab results ECG Interpretation: 68 ID 174 QRSd 90 QT 382 QTc 408 --Powers-- P 52 QRS 65 T 40 SINUS RHYTHM No previous ECG available for comparison Imaging CT scan - head: Radiologist's impression: CT of the brain ordered and chest x-ray please see final report Quality VTE Prophylaxis VTE prophylaxis: mechanical ordered Assessment and Plan Assessment and plan (1) Dementia of Alzheimer's type with behavioral disturbance: Code(s): G30.9 - Alzheimer's disease, unspecified; F02.818 - Dementia in other diseases classified elsewhere, unspecified severity, with other behavioral disturbance Status: Acute Assessment and Plan: -the patient is already on memantine. -according to the family he is not sleeping at night. Seroquel was added. This may help the patient sleep at night. -no imaging has been performed at this time. head CT and chest x-ray have been ordered. -his urinalysis is clear at this time. -the patient has become more aggressive over the last couple days. -the family members are considering memory care unit placement for the patient. -care coordination and consult with greatly be appreciated. (2) Anemia: Qualifiers: Anemia type: unspecified type Qualified Code(s): D64.9 - Anemia, unspecified Code(s): D64.9 - Anemia, unspecified Status: Acute Assessment and Plan: -anemia of chronic disease most likely secondary to his chronic renal failure. -his H&H is 10.8 and 34.1 which is slightly lower than his baseline. -please continue to monitor. -check stool for occult blood. -H&H every 6 hours. (3) BPH with obstruction/lower urinary tract symptoms: Code(s): N40.1 - Benign prostatic hyperplasia with lower urinary tract symptoms; N13.8 - Other obstructive and reflux uropathy Status: Acute Assessment and Plan: -continue with tamsulosin (4) Chronic kidney disease, stage 3b: Code(s): N18.32 - Chronic kidney disease, stage 3b Status: Acute Assessment and Plan: -the patient is at his baseline. -avoid nephrotoxic medication. (5) Type 2 diabetes mellitus with diabetic nephropathy: Qualifiers: Diabetes mellitus financial administrator insulin use: with financial administrator use Qualified Code(s): E11.21 - Type 2 diabetes mellitus with diabetic nephropathy; Z79.4 - USP (current) use of insulin Code(s): E11.21 - Type 2 diabetes mellitus with diabetic nephropathy Status: Acute Assessment and Plan: -Accu-Cheks AC and HS with sliding scale insulin and hypoglycemic. -pharmacy to reduce home insulin by 20%. -check A1c if not performed in the last 3 months. He is coming up on 3 months since his last A1c. On 06/10/2025 it was 6.4. Plan Previous history with previous charts reviewed. Labs reviewed. Discussed with patient and family concerning placement. Time Spent with Patient Time with patient: 45 - 74 minutes
[2025-09-07 19:45] VITALS: BP 127/63; PULSE 69; RESP 18; TEMP 37.1; O2SAT 97
--- OUTSIDE RECORDS SUMMARY | 2025-09-07 20:05 | XMS_ITS | Clinical Summary ---
Author Organization [facility] Address [address] [place] [phone] Phone Care Team Providers Care Hazardous Materials Driver Name Role Phone Unavailable Primary Care Provider [...] on file Legal Sex Male 8:07 AM [facility] Gender Identity Not on file Sexual [...]
[2025-09-07 20:21] LABS: Hematocrit 31.6 % (42.0-52.0); Hemoglobin 10.3 g/dL (14.0-18.0)
[2025-09-07 20:50] LABS: Hemoglobin A1C 6.4 % (<5.7)
[2025-09-07 23:10] VITALS: BP 134/73; PULSE 66; RESP 18; TEMP 37.1; O2SAT 98
--- NOTE | 2025-09-07 23:41 | PC.NURSE ---
pt getting very agitated this shift. standing on all fours in the bed trying to flip feet over to get out being combative with staff. genia brownlee notifed and order for 5mg zyprexa IM one time dose has been ordered a this time.
[2025-09-07] MEDS: OLANZapine 5 MG, WATER, STERILE FOR INJECTION 2.1 ML IM (23:48)
[2025-09-08] VITALS (7 sets, daily range): BP systolic 98–162; BP diastolic 53–87; PULSE 54–90; RESP 14–17; TEMP 36.7–37.7; O2SAT 93–99
[2025-09-08 02:18] LABS: Hematocrit 35.8 % (42.0-52.0); Hemoglobin 11.7 g/dL (14.0-18.0); Mean Corpuscular HGB Conc 32.7 g/dl (32-36); Mean Corpuscular Hemoglobin 32.8 pg (26-34); Mean Corpuscular Volume 100.3 fl (80-100); Platelet Count Result 141 k/mm3 (150-375); Red Blood Count 3.57 M/mm3 (4.6-6.20); White Blood Count 8.9 K/mm3 (4.5-10.0)
[2025-09-08 02:38] LABS: Anion Gap 6 mmol/L (4-12); Blood Urea Nitrogen 36 mg/dL (9-20); Calcium 9.3 mg/dL (8.4-10.2); Carbon Dioxide 23 mmol/L (22-30); Chloride 113 mmol/L (98-107); Estimated CRCL calculation 26 ml/min; Estimated Glomerular Filt Rate 33; Glucose 102 mg/dL (65-110); Potassium 4.1 mmol/L (3.4-5.0); Sodium 142 mmol/L (137-145)
[2025-09-08 08:01] LABS: Hematocrit 34.5 % (42.0-52.0); Hemoglobin 11.3 g/dL (14.0-18.0)
--- NOTE | 2025-09-08 12:51 | PM.IMPN2 ---
Assessment and Plan Assessment and Plan (1) Altered mental status: Code(s): R41.82 - Altered mental status, unspecified Status: Acute Assessment and Plan: Patient difficult to arouse today. He was given Seroquel 25mg last night and Zyprexa 5mg IM later in the evening. Patient is responsive and felt related to medications and lack of sleep. TSH slightly elevated at 5.4 but FT4 normal. PCT, B12, folate normal. Lactic normal. Ammonia <9. CT head on admission showing no acute findings. Repeat CT head pending. Glucose normal. Add IV fluids. Neuro checks ordered. Hold off on LP at this time since more likely from medications. (2) Dementia of Alzheimer's type with behavioral disturbance: Code(s): G30.9 - Alzheimer's disease, unspecified; F02.818 - Dementia in other diseases classified elsewhere, unspecified severity, with other behavioral disturbance Status: Acute Assessment and Plan: Patient with dementia on memantine. According to the family he is not sleeping at night and has become more aggressive over the last couple days. Head CT showing no acute findings. CXR was clear. UA was clear. Seroquel was added at night. The family members are considering memory care unit placement for the patient. Care coordination and consult with greatly be appreciated. He was more agitated so Zyprexa given but now patient poorly responsive. As above (3) Anemia: Qualifiers: Anemia type: unspecified type Qualified Code(s): D64.9 - Anemia, unspecified Code(s): D64.9 - Anemia, unspecified Status: Acute Assessment and Plan: Patient with a low grade chronic anemia with Hgb running 11-13 range. Hgb was 10.8 on admission but has improved to the 11 range. Normal iron studies in June and normal B12/folate here. Follow (4) BPH with obstruction/lower urinary tract symptoms: Code(s): N40.1 - Benign prostatic hyperplasia with lower urinary tract symptoms; N13.8 - Other obstructive and reflux uropathy Status: Acute Assessment and Plan: Patient with BPH. No clinical evidence of urine retention. Continue with tamsulosin (5) Chronic kidney disease, stage 3b: Code(s): N18.32 - Chronic kidney disease, stage 3b Status: Acute Assessment and Plan: Baseline Cr 1.8-2.2 over the past 2 years. Cr was 2.16 on admission. Cr better at 1.95. Follow renal function, electrolytes and UOP. (6) Type 2 diabetes mellitus with diabetic nephropathy: Qualifiers: Diabetes mellitus termite exterminator helper insulin use: with termite exterminator helper use Qualified Code(s): E11.21 - Type 2 diabetes mellitus with diabetic nephropathy; Z79.4 - termite exterminator helper (current) use of insulin Code(s): E11.21 - Type 2 diabetes mellitus with diabetic nephropathy Status: Acute Assessment and Plan: A1c 6.4%. The patient's blood glucose was reviewed on 09/08 Glucose remains well controlled. Continue AccuCheks covering with sliding scale. Hypoglycemia protocol available as needed. Stop insulin since not eating. Plan Mild Thrombocytopenia - slightly low. B12 okay. Will follow. Monitor since on heparin. DVT prophylaxis - SCDs Code status - DNR Subjective Date/time seen: 09/08/25 12:51 Interval history: 80yo male with dementia, CKD and DM here for dementia with aggressive behavior. Patient is minimally responsive so unable to provide hx. Review of Systems Review of Systems: ROS unobtainable: Yes unobtainable due to mental status Exam Narrative: AF 98.7 98/53 54 14 97% ra Gen - NARD lying semi-recumbent in bed HEENT - dysconjugate gaze. pupils reactive. resists exam. Chest - clear anteriorly to quiet respirations CV - RRR S1/S2 Abd - Soft, ND, Positive BS Ext - No pedal edema Neuro - arouses. purposeful movements. Neg Kernigs. Normal tone but pain with passive motion of all extremities. Psych - unable to assess Skin - Warm and dry Objective Data Vital Signs Vital Signs: Vital Signs - 24 hr 09/07/25 15:22 09/07/25 16:01 09/07/25 19:45 Temperature 97.6 F 97.6 F 98.7 F Pulse Rate 73 66 69 Respiratory Rate 18 20 18 Blood Pressure 136/67 131/59 L 127/63 Pulse Oximetry 100 96 97 Oxygen Delivery Room Air 09/07/25 23:10 09/08/25 03:00 09/08/25 08:00 Temperature 98.8 F 98.5 F 98.7 F Pulse Rate 66 88 54 L Respiratory Rate 18 16 14 Blood Pressure 134/73 162/87 H 98/53 L Pulse Oximetry 98 93 95 Oxygen Delivery 09/08/25 08:00 09/08/25 08:21 Temperature Pulse Rate Respiratory Rate Blood Pressure Pulse Oximetry 97 Oxygen Delivery Room Air Room Air Meds/Results Medications: Active Medications Generic Name Dose Route Start Last Admin Trade Name Freq PRN Reason Stop Dose Admin Aspirin 81 mg 09/08/25 09:00 Aspirin 81 Mg Enteric Tablet PO DAILY [facility] Dextrose 12.5 gm 09/07/25 19:33 Dextrose 50% 25 Gm/50 Ml Syringe IV PUSH PRN PRN Hypoglycemia Protocol Glucagon 1 mg 09/07/25 19:33 Glucagon For Inj 1 Mg Vial IM PRN PRN Hypoglycemia Protocol Glucose 15 gm 09/07/25 19:33 Glucose Oral Gel 15 Gm Of Glucse In 37.5 Gm Tube PO PRN PRN Hypoglycemia Protocol Dextrose 1,000 mls @ 100 mls/hr 09/07/25 19:33 Dextrose 5% 1,000 Ml IVPB PRN PRN Hypoglycemia Protocol Insulin Aspart 2 - 5 units 09/08/25 08:00 09/08/25 09:30 Insulin Aspart (*Bkc) 100 Units/Ml SUB-Q Not Given TIDWM [facility] Protocol Insulin Human Isoph/Insulin Regular 19 units 09/08/25 09:00 Insulin Human Isophan/Regular 70/30 (*Bkc) 100 Units/Ml SUB-Q BID [facility] Losartan Potassium 100 mg 09/08/25 09:00 Losartan Potassium 100 Mg Tablet BY MOUTH DAILY [facility] Memantine 10 mg 09/08/25 09:00 Memantine 10 Mg Tablet PO BID [facility] Quetiapine Fumarate 25 mg 09/07/25 21:00 09/07/25 20:50 Quetiapine Fumarate 25 Mg Tablet PO 25 mg HS [facility] Administration Tamsulosin HCl 0.4 mg 09/08/25 17:30 Tamsulosin Hcl 0.4 Mg Capsule PO DAILY@1730 [facility] Radiology Results: ITS Impressions Head CT 09/07/25 20:55 IMPRESSION: No acute intracranial hemorrhage or extra axial fluid collections. All CT scans at this facility are performed using low dose modulation techniques as appropriate to perform exam including the following: automated exposure control; use of iterative reconstruction technique; adjustment of the mA and/or kV according to patient size (this includes techniques or standardized protocols for targeted exams where dose is matched to indication/reason for exam). Chest X-Ray 09/07/25 21:19 IMPRESSION: No acute pulmonary findings. Labs Labs: Laboratory Results - last 24 hr 09/07/25 09/07/25 09/07/25 15:54 19:50 20:17 WBC 7.4 RBC 3.34 L Hgb 10.8 L 10.3 L Hct 34.1 L 31.6 L MCV 102.1 H MCH 32.3 MCHC 31.7 L RDW 13.5 Plt Count 133 L MPV 9.5 Immature Gran % (Auto) 0.7 H Neut % (Auto) 77.1 H Lymph % (Auto) 13.2 L Butler % (Auto) 8.2 Eos % (Auto) 0.3 Baso % (Auto) 0.5 Lymph # (Auto) 0.98 Butler # (Auto) 0.6 Eos # (Auto) 0.0 Baso # (Auto) 0.0 Abs Immat Gran (auto) 0.05 H Absolute Neuts (auto) 5.7 Absolute Nucleated RBC 0.000 Nucleated RBC % 0.0 Sodium 142 Potassium 4.3 Chloride 112 H Carbon Dioxide 24 Anion Gap 6 BUN 38 H Creatinine 2.16 H Estim Creat Clear Calc 21 Estimated GFR 30 L Glucose 226 H POC Capillary Glucose 158 H Hemoglobin A1c 6.4 H Calcium 9.2 Total Bilirubin 0.6 AST 38 ALT 40 Alkaline Phosphatase 83 Total Protein 6.3 Albumin 3.9 Urine Color Yellow Urine Appearance Clear Urine pH 6.0 Ur Specific Franklin 1.019 Urine Protein 2+ H Urine Glucose (UA) Trace H Urine Ketones Negative Ur Blood (Man) Negative Urine Nitrate Negative Urine Bilirubin Negative Urine Urobilinogen 1.0 Leukocyte Esterase Rfl Negative Urine RBC 3-5 H Urine WBC 0-5 Ur Squamous Epith Cells None seen Urine Bacteria None seen Urine Casts 0-2 09/08/25 09/08/25 09/08/25 02:13 07:55 08:08 WBC 8.9 RBC 3.57 L Hgb 11.7 L 11.3 L Hct 35.8 L 34.5 L MCV 100.3 H MCH 32.8 MCHC 32.7 RDW 13.3 Plt Count 141 L MPV 8.9 Immature Gran % (Auto) Neut % (Auto) Lymph % (Auto) Butler % (Auto) Eos % (Auto) Baso % (Auto) Lymph # (Auto) Butler # (Auto) Eos # (Auto) Baso # (Auto) Abs Immat Gran (auto) Absolute Neuts (auto) Absolute Nucleated RBC Nucleated RBC % Sodium 142 Potassium 4.1 Chloride 113 H Carbon Dioxide 23 Anion Gap 6 BUN 36 H Creatinine 1.95 H Estim Creat Clear Calc 26 Estimated GFR 33 L Glucose 102 POC Capillary Glucose 123 H Hemoglobin A1c Calcium 9.3 Total Bilirubin AST ALT Alkaline Phosphatase Total Protein Albumin Urine Color Urine Appearance Urine pH Ur Specific Franklin Urine Protein Urine Glucose (UA) Urine Ketones Ur Blood (Man) Urine Nitrate Urine Bilirubin Urine Urobilinogen Leukocyte Esterase Rfl Urine RBC Urine WBC Ur Squamous Epith Cells Urine Bacteria Urine Casts 09/08/25 11:46 WBC RBC Hgb Hct MCV MCH MCHC RDW Plt Count MPV Immature Gran % (Auto) Neut % (Auto) Lymph % (Auto) Butler % (Auto) Eos % (Auto) Baso % (Auto) Lymph # (Auto) Butler # (Auto) Eos # (Auto) Baso # (Auto) Abs Immat Gran (auto) Absolute Neuts (auto) Absolute Nucleated RBC Nucleated RBC % Sodium Potassium Chloride Carbon Dioxide Anion Gap BUN Creatinine Estim Creat Clear Calc Estimated GFR Glucose POC Capillary Glucose 138 H Hemoglobin A1c Calcium Total Bilirubin AST ALT Alkaline Phosphatase Total Protein Albumin Urine Color Urine Appearance Urine pH Ur Specific Franklin Urine Protein Urine Glucose (UA) Urine Ketones Ur Blood (Man) Urine Nitrate Urine Bilirubin Urine Urobilinogen Leukocyte Esterase Rfl Urine RBC Urine WBC Ur Squamous Epith Cells Urine Bacteria Urine Casts
[2025-09-08 13:41] LABS: Procalcitonin 0.1 ng/mL
[2025-09-08 14:35] LABS: Thyroid Stimulating Hormone Reflex 5.430 uIU/mL (0.465-4.68)
[2025-09-08] MEDS: DEXTROSE 5%/0.9% SOD CHL 1,000 ML 70 ML IV CONT (15:18)
[2025-09-08 15:27] LABS: Hematocrit 35.1 % (42.0-52.0); Hemoglobin 11.3 g/dL (14.0-18.0)
[2025-09-08 15:31] LABS: Free T4 Free Thyroxine Reflex 0.82 ng/dL (0.78-2.19)
[2025-09-08 15:36] LABS: Ammonia < 9 umol/L (9-30)
[2025-09-08 16:10] LABS: Total Triiodothyronine (T3) 1.05 NG/ML (0.82-1.58)
[2025-09-08 17:25] LABS: Vitamin B12 450.0 pg/mL (239-931)
--- NOTE | 2025-09-08 19:34 | PC.NURSE ---
Pt family took patient wedding band home on 09/08/25.
[2025-09-08] MEDS: QUEtiapine FUMARATE 12.5 MG TABLET PO (21:19)
[2025-09-09 04:00] VITALS: BP 132/54; PULSE 70; RESP 17; TEMP 36.7; O2SAT 98
[2025-09-09 07:22] LABS: Hematocrit 38.1 % (42.0-52.0); Hemoglobin 12.0 g/dL (14.0-18.0); Mean Corpuscular HGB Conc 31.5 g/dl (32-36); Mean Corpuscular Hemoglobin 32.3 pg (26-34); Mean Corpuscular Volume 102.7 fl (80-100); Platelet Count Result 132 k/mm3 (150-375); Red Blood Count 3.71 M/mm3 (4.6-6.20); White Blood Count 10.1 K/mm3 (4.5-10.0)
[2025-09-09 07:46] LABS: Anion Gap 6 mmol/L (4-12); Blood Urea Nitrogen 31 mg/dL (9-20); Calcium 9.0 mg/dL (8.4-10.2); Carbon Dioxide 24 mmol/L (22-30); Chloride 112 mmol/L (98-107); Estimated CRCL calculation 27 ml/min; Estimated Glomerular Filt Rate 35; Glucose 149 mg/dL (65-110); Potassium 4.2 mmol/L (3.4-5.0); Sodium 142 mmol/L (137-145)
[2025-09-09 10:40] VITALS: BP 128/55; PULSE 55; RESP 17; TEMP 36.4; O2SAT 98
[2025-09-09 13:05] VITALS: BP 112/53; PULSE 56; RESP 17; TEMP 36.8; O2SAT 98
--- NOTE | 2025-09-09 13:17 | PM.IMPN2 ---
Assessment and Plan Assessment and Plan (1) Altered mental status: Code(s): R41.82 - Altered mental status, unspecified Status: Acute Assessment and Plan: Patient was difficult to arouse felt related to Seroquel 25mg and Zyprexa 5mg IM coupled with his poor sleep pattern prior to admission CT head on admission showing no acute findings. Repeat CT head also showing no acute changes TSH slightly elevated at 5.4 but FT4 normal. PCT, B12, folate normal. Lactic normal. Ammonia <9. Glucose normal. Mental status was better so Seroquel continued at lower dose last night. Continue Neuro checks. Start PT/OT.\ (2) Dementia of Alzheimer's type with behavioral disturbance: Code(s): G30.9 - Alzheimer's disease, unspecified; F02.818 - Dementia in other diseases classified elsewhere, unspecified severity, with other behavioral disturbance Status: Acute Assessment and Plan: Patient with dementia on memantine. According to the family he was not sleeping at night and was becoming more aggressive over the last couple days. Head CT showing no acute findings. CXR was clear. UA was clear. The family members are considering memory care unit placement for the patient. Care coordination consult greatly appreciated. Added low dose Seroquel. Continue the same. (3) Anemia: Qualifiers: Anemia type: unspecified type Qualified Code(s): D64.9 - Anemia, unspecified Code(s): D64.9 - Anemia, unspecified Status: Acute Assessment and Plan: Patient with a low grade chronic anemia with Hgb running 11-13 range. Hgb was 10.8 on admission but has improved to the 11-12 range. Normal iron studies in June and normal B12/folate here. Follow (4) BPH with obstruction/lower urinary tract symptoms: Code(s): N40.1 - Benign prostatic hyperplasia with lower urinary tract symptoms; N13.8 - Other obstructive and reflux uropathy Status: Acute Assessment and Plan: Patient with BPH. No clinical evidence of urine retention. Continue with tamsulosin when able to take (5) Chronic kidney disease, stage 3b: Code(s): N18.32 - Chronic kidney disease, stage 3b Status: Acute Assessment and Plan: Baseline Cr 1.8-2.2 over the past 2 years. Cr was 2.16 on admission. Cr better at 1.88 Follow renal function, electrolytes and UOP. (6) Type 2 diabetes mellitus with diabetic nephropathy: Qualifiers: Diabetes mellitus intermediate insulin use: with intermediate use Qualified Code(s): E11.21 - Type 2 diabetes mellitus with diabetic nephropathy; Z79.4 - [facility] (current) use of insulin Code(s): E11.21 - Type 2 diabetes mellitus with diabetic nephropathy Status: Acute Assessment and Plan: A1c 6.4%. The patient's blood glucose was reviewed on 09/09 Glucose remains well controlled. Continue AccuCheks covering with sliding scale. Hypoglycemia protocol available as needed. Holding insulin until he starts to eat regularly. Plan Mild Thrombocytopenia - slightly low. B12 okay. Will follow. DVT prophylaxis - SCDs Code status - DNR Subjective Date/time seen: 09/09/25 13:17 Interval history: 80yo male with dementia, CKD and DM here for dementia with aggressive behavior. Patient is more responsive with clear speech at times. Patient was seen last night and was awake, alert but mildly agitated. RN states patient slept well. Exam Narrative: AF 98.2 112/53 56 17 98% ra Gen - NARD lying semi-recumbent in bed Chest - clear anteriorly to quiet respirations CV - RRR S1/S2 Abd - Soft, ND, Positive BS Ext - No pedal edema Neuro - arouses. Mumbled speech but clear at times. follows commands at times. Psych - unable to assess Skin - Warm and dry Objective Data Vital Signs Vital Signs: Vital Signs - 24 hr 09/08/25 15:00 09/08/25 16:00 09/08/25 20:00 Temperature 98.1 F 98.1 F 99.8 F H Pulse Rate 62 62 90 Respiratory Rate 16 16 17 Blood Pressure 111/64 111/64 149/73 H Pulse Oximetry 98 98 98 Oxygen Delivery 09/08/25 20:00 09/09/25 04:00 09/09/25 08:00 Temperature 98.1 F Pulse Rate 90 70 Respiratory Rate 17 17 Blood Pressure 132/54 L Pulse Oximetry 98 98 Oxygen Delivery Room Air Room Air 09/09/25 10:40 09/09/25 13:05 Temperature 97.5 F L 98.2 F Pulse Rate 55 L 56 L Respiratory Rate 17 17 Blood Pressure 128/55 L 112/53 L Pulse Oximetry 98 98 Oxygen Delivery Intake/Output Intake/Output: Intake & Output 09/06/25 09/07/25 09/08/25 09/09/25 23:59 23:59 23:59 23:59 Intake Total 0 Balance 0 Meds/Results Medications: Active Medications Generic Name Dose Route Start Last Admin Trade Name Freq PRN Reason Stop Dose Admin Aspirin 81 mg 09/08/25 09:00 09/09/25 08:53 Aspirin 81 Mg Enteric Tablet PO Not Given DAILY ANGÉLICA Dextrose 12.5 gm 09/07/25 19:33 Dextrose 50% 25 Gm/50 Ml Syringe IV PUSH PRN PRN Hypoglycemia Protocol Glucagon 1 mg 09/07/25 19:33 Glucagon For Inj 1 Mg Vial IM PRN PRN Hypoglycemia Protocol Glucose 15 gm 09/07/25 19:33 Glucose Oral Gel 15 Gm Of Glucse In 37.5 Gm Tube PO PRN PRN Hypoglycemia Protocol Dextrose 1,000 mls @ 100 mls/hr 09/07/25 19:33 Dextrose 5% 1,000 Ml IVPB PRN PRN Hypoglycemia Protocol Dextrose/Sodium Chloride 1,000 mls @ 70 mls/hr 09/08/25 13:00 09/08/25 15:18 Dextrose 5% Sodium Chloride 0.9% IV CONT 70 mls/hr .[id number] ANGÉLICA Administration Insulin Aspart 2 - 5 units 09/08/25 08:00 09/09/25 10:59 Insulin Aspart (*Bkc) 100 Units/Ml SUB-Q Not Given TIDWM [facility] Protocol Insulin Human Isoph/Insulin Regular 19 units 09/08/25 09:00 09/08/25 15:07 Insulin Human Isophan/Regular 70/30 (*Bkc) 100 Units/Ml SUB-Q Not Given On Hold: 09/08/25 12:55 BID ANGÉLICA Losartan Potassium 100 mg 09/08/25 09:00 09/09/25 08:53 Losartan Potassium 100 Mg Tablet BY MOUTH Not Given DAILY ANGÉLICA Memantine 10 mg 09/08/25 09:00 09/09/25 08:53 Memantine 10 Mg Tablet PO Not Given BID ANGÉLICA Quetiapine Fumarate 12.5 mg 09/08/25 21:00 09/08/25 21:19 Quetiapine Fumarate 12.5 Mg Tablet PO 12.5 mg HS ANGÉLICA Administration Tamsulosin HCl 0.4 mg 09/08/25 17:30 09/08/25 18:39 Tamsulosin Hcl 0.4 Mg Capsule PO Not Given DAILY@1730 [facility] Radiology Results: ITS Impressions Chest X-Ray 09/07/25 21:19 IMPRESSION: No acute pulmonary findings. Head CT 09/08/25 17:54 Impression: 1.No acute intracranial abnormality. Labs Labs: Laboratory Results - last 24 hr 09/08/25 09/08/25 09/08/25 07:53 15:13 16:40 WBC RBC Hgb 11.3 L Hct 35.1 L MCV MCH MCHC RDW Plt Count MPV Sodium Potassium Chloride Carbon Dioxide Anion Gap BUN Creatinine Estim Creat Clear Calc Estimated GFR Glucose POC Capillary Glucose 149 H Lactic Acid 0.8 Calcium Ammonia < 9 L Vitamin B12 450.0 Folate > 20.0 H Procalcitonin 0.1 TSH (Reflex) 5.430 H Free T4 0.82 Total T3 1.05 09/08/25 09/09/25 09/09/25 21:27 06:53 08:57 WBC 10.1 H RBC 3.71 L Hgb 12.0 L Hct 38.1 L MCV 102.7 H MCH 32.3 MCHC 31.5 L RDW 13.2 Plt Count 132 L MPV 9.5 Sodium 142 Potassium 4.2 Chloride 112 H Carbon Dioxide 24 Anion Gap 6 BUN 31 H Creatinine 1.88 H Estim Creat Clear Calc 27 Estimated GFR 35 L Glucose 149 H POC Capillary Glucose 117 H 144 H Lactic Acid Calcium 9.0 Ammonia Vitamin B12 Folate Procalcitonin TSH (Reflex) Free T4 Total T3
[2025-09-09 15:17] VITALS: BP 97/43; PULSE 59; RESP 19; TEMP 36.4; O2SAT 100
[2025-09-09] MEDS: TAMSULOSIN HCL 0.4 MG CAPSULE PO (18:13)
[2025-09-09] MEDS: DEXTROSE 5%/0.9% SOD CHL 1,000 ML 70 ML IV CONT (18:13)
[2025-09-09] MEDS: MEMANTINE 10 MG TABLET PO (18:13)
[2025-09-09 20:00] VITALS: BP 112/59; PULSE 64; RESP 18; TEMP 36.7; O2SAT 100
[2025-09-09] MEDS: QUEtiapine FUMARATE 12.5 MG TABLET PO (21:11)
[2025-09-10] VITALS: BP 108/60; PULSE 65; RESP 17; TEMP 36.3; O2SAT 100
[2025-09-10 04:00] VITALS: BP 106/50; PULSE 72; RESP 18; TEMP 36.6; O2SAT 100
[2025-09-10 06:33] LABS: Hematocrit 37.9 % (42.0-52.0); Hemoglobin 12.0 g/dL (14.0-18.0); Mean Corpuscular HGB Conc 31.7 g/dl (32-36); Mean Corpuscular Hemoglobin 32.6 pg (26-34); Mean Corpuscular Volume 103.0 fl (80-100); Platelet Count Result 127 k/mm3 (150-375); Red Blood Count 3.68 M/mm3 (4.6-6.20); White Blood Count 10.9 K/mm3 (4.5-10.0)
[2025-09-10 07:03] LABS: Anion Gap 7 mmol/L (4-12); Blood Urea Nitrogen 35 mg/dL (9-20); Calcium 8.9 mg/dL (8.4-10.2); Carbon Dioxide 24 mmol/L (22-30); Chloride 110 mmol/L (98-107); Estimated CRCL calculation 26 ml/min; Estimated Glomerular Filt Rate 34; Glucose 145 mg/dL (65-110); Potassium 4.2 mmol/L (3.4-5.0); Sodium 141 mmol/L (137-145)
[2025-09-10 08:00] VITALS: BP 109/82; PULSE 64; RESP 20; TEMP 36.1; O2SAT 98
--- NOTE | 2025-09-10 10:48 | PCPTNOTE ---
Pt not able to safely participate with skilled therapy. Pt's family is considering hospice. Will follow.
--- NOTE | 2025-09-10 11:57 | PC.NURSE ---
patient removed dexcom from back of arm when attempting to get out of bed.
[2025-09-10 12:00] VITALS: BP 105/59; PULSE 71; RESP 16; TEMP 36.1; O2SAT 98
--- NOTE | 2025-09-10 12:13 | PCOTNOTE ---
Attempted to complete OT evaluation; pt. did not open eyes or follow commands. Family is considering hospice. Will continue to follow.
--- NOTE | 2025-09-10 15:25 | PM.IMPN2 ---
Assessment and Plan Assessment and Plan (1) Altered mental status: Code(s): R41.82 - Altered mental status, unspecified Status: Acute Assessment and Plan: Patient was difficult to arouse felt related to Seroquel 25mg and Zyprexa 5mg IM coupled with his poor sleep pattern prior to admission CT head on admission showing no acute findings. Repeat CT head also showing no acute changes TSH slightly elevated at 5.4 but FT4 normal. PCT, B12, folate normal. Lactic normal. Ammonia <9. Glucose normal. Mental status better so Seroquel continued at lower dose at bedtime. Mental status better and remaining calm. Able to resume home meds. Continue Neuro checks. Continue PT/OT. SLIVF. Out of bed. (2) Dementia of Alzheimer's type with behavioral disturbance: Code(s): G30.9 - Alzheimer's disease, unspecified; F02.818 - Dementia in other diseases classified elsewhere, unspecified severity, with other behavioral disturbance Status: Acute Assessment and Plan: Patient with dementia on memantine. According to the family he was not sleeping at night and was becoming more aggressive over the last couple days. Head CT showing no acute findings. CXR was clear. UA was clear. The family members are considering memory care unit placement for the patient. Hospice also consulted. Care coordination consult greatly appreciated. Continue low dose Seroquel. Continue the same. (3) Anemia: Qualifiers: Anemia type: unspecified type Qualified Code(s): D64.9 - Anemia, unspecified Code(s): D64.9 - Anemia, unspecified Status: Acute Assessment and Plan: Patient with a low grade chronic anemia with Hgb running 11-13 range. Hgb was 10.8 on admission but has improved to the 11-12 range. Normal iron studies in June and normal B12/folate here. Follow (4) BPH with obstruction/lower urinary tract symptoms: Code(s): N40.1 - Benign prostatic hyperplasia with lower urinary tract symptoms; N13.8 - Other obstructive and reflux uropathy Status: Acute Assessment and Plan: Patient with BPH. No clinical evidence of urine retention. Continue with tamsulosin (5) Chronic kidney disease, stage 3b: Code(s): N18.32 - Chronic kidney disease, stage 3b Status: Acute Assessment and Plan: Baseline Cr 1.8-2.2 over the past 2 years. Cr was 2.16 on admission. Cr better at 1.9 Follow renal function, electrolytes and UOP. (6) Type 2 diabetes mellitus with diabetic nephropathy: Qualifiers: Diabetes mellitus skilled nursing insulin use: with lobsterman use Qualified Code(s): E11.21 - Type 2 diabetes mellitus with diabetic nephropathy; Z79.4 - retirement (current) use of insulin Code(s): E11.21 - Type 2 diabetes mellitus with diabetic nephropathy Status: Acute Assessment and Plan: A1c 6.4%. The patient's blood glucose was reviewed on 09/10 Glucose remains well controlled. Continue AccuCheks covering with sliding scale. Hypoglycemia protocol available as needed. Holding insulin until he starts to eat regularly. Plan Mild Thrombocytopenia - slightly low. B12 okay. Will follow. DVT prophylaxis - SCDs Code status - DNR Subjective Date/time seen: 09/10/25 15:25 Interval history: 80yo male with dementia, CKD and DM here for dementia with aggressive behavior. Patient eating well. Unable to provide hx Review of Systems Review of Systems: ROS unobtainable: Yes unobtainable due to mental status Exam Narrative: AF 96.9 105/59 71 16 98% ra Gen - NARD lying semi-recumbent in bed Chest - clear anteriorly to quiet respirations CV - RRR S1/S2 Abd - Soft, ND, Positive BS Ext - No pedal edema Neuro - arouses. Speech but clear at times. follows commands at times. Psych - unable to assess Skin - Warm and dry Objective Data Vital Signs Vital Signs: Vital Signs - 24 hr 09/09/25 20:00 09/10/25 00:00 09/10/25 04:00 Temperature 98.0 F 97.4 F L 97.9 F Pulse Rate 64 65 72 Respiratory Rate 18 17 18 Blood Pressure 112/59 L 108/60 106/50 L Pulse Oximetry 100 100 100 Oxygen Delivery 09/10/25 08:00 09/10/25 08:00 09/10/25 12:00 Temperature 97 F L 96.9 F L Pulse Rate 64 71 Respiratory Rate 20 16 Blood Pressure 109/82 105/59 L Pulse Oximetry 98 98 Oxygen Delivery Room Air 09/10/25 14:32 Temperature Pulse Rate Respiratory Rate Blood Pressure Pulse Oximetry Oxygen Delivery Room Air Intake/Output Intake/Output: Intake & Output 09/07/25 09/08/25 09/09/25 09/10/25 23:59 23:59 23:59 23:59 Intake Total 1240 1140 Balance 1240 1140 Meds/Results Medications: Active Medications Generic Name Dose Route Start Last Admin Trade Name Freq PRN Reason Stop Dose Admin Aspirin 81 mg 09/08/25 09:00 09/10/25 10:01 Aspirin 81 Mg Enteric Tablet PO Not Given DAILY ANGÉLICA Dextrose 12.5 gm 09/07/25 19:33 Dextrose 50% 25 Gm/50 Ml Syringe IV PUSH PRN PRN Hypoglycemia Protocol Glucagon 1 mg 09/07/25 19:33 Glucagon For Inj 1 Mg Vial IM PRN PRN Hypoglycemia Protocol Glucose 15 gm 09/07/25 19:33 Glucose Oral Gel 15 Gm Of Glucse In 37.5 Gm Tube PO PRN PRN Hypoglycemia Protocol Dextrose 1,000 mls @ 100 mls/hr 09/07/25 19:33 Dextrose 5% 1,000 Ml IVPB PRN PRN Hypoglycemia Protocol Dextrose/Sodium Chloride 1,000 mls @ 70 mls/hr 09/08/25 13:00 09/09/25 18:13 Dextrose 5% Sodium Chloride 0.9% IV CONT 70 mls/hr .[id number] ANGÉLICA Administration Insulin Aspart 2 - 5 units 09/08/25 08:00 09/10/25 13:11 Insulin Aspart (*Bkc) 100 Units/Ml SUB-Q Not Given TIDWM ANGÉLICA Protocol Insulin Human Isoph/Insulin Regular 19 units 09/08/25 09:00 09/08/25 15:07 Insulin Human Isophan/Regular 70/30 (*Bkc) 100 Units/Ml SUB-Q Not Given On Hold: 09/08/25 12:55 BID ANGÉLICA Losartan Potassium 100 mg 09/08/25 09:00 09/10/25 10:01 Losartan Potassium 100 Mg Tablet BY MOUTH Not Given DAILY ANGÉLICA Memantine 10 mg 09/08/25 09:00 09/10/25 10:01 Memantine 10 Mg Tablet PO Not Given BID ANGÉLICA Quetiapine Fumarate 12.5 mg 09/08/25 21:00 09/09/25 21:11 Quetiapine Fumarate 12.5 Mg Tablet PO 12.5 mg HS ANGÉLICA Administration Tamsulosin HCl 0.4 mg 09/08/25 17:30 09/09/25 18:13 Tamsulosin Hcl 0.4 Mg Capsule PO 0.4 mg DAILY@1730 [facility] Administration Radiology Results: ITS Impressions Chest X-Ray 09/07/25 21:19 IMPRESSION: No acute pulmonary findings. Head CT 09/08/25 17:54 Impression: 1.No acute intracranial abnormality. Labs Labs: Laboratory Results - last 24 hr 09/09/25 09/09/25 09/10/25 17:15 20:13 06:27 WBC 10.9 H RBC 3.68 L Hgb 12.0 L Hct 37.9 L MCV 103.0 H MCH 32.6 MCHC 31.7 L RDW 12.9 Plt Count 127 L MPV 9.5 Sodium 141 Potassium 4.2 Chloride 110 H Carbon Dioxide 24 Anion Gap 7 BUN 35 H Creatinine 1.94 H Estim Creat Clear Calc 26 Estimated GFR 34 L Glucose 145 H POC Capillary Glucose 153 H 143 H Calcium 8.9 09/10/25 09/10/25 07:45 11:33 WBC RBC Hgb Hct MCV MCH MCHC RDW Plt Count MPV Sodium Potassium Chloride Carbon Dioxide Anion Gap BUN Creatinine Estim Creat Clear Calc Estimated GFR Glucose POC Capillary Glucose 146 H 172 H Calcium
[2025-09-10 16:00] VITALS: BP 111/54; PULSE 65; RESP 16; TEMP 36; O2SAT 95
[2025-09-10] MEDS: TAMSULOSIN HCL 0.4 MG CAPSULE PO (17:15)
[2025-09-10] MEDS: MEMANTINE 10 MG TABLET PO (17:15)
[2025-09-10 20:00] VITALS: BP 119/61; PULSE 68; RESP 18; TEMP 36.7; O2SAT 90
[2025-09-10] MEDS: QUEtiapine FUMARATE 12.5 MG TABLET PO (20:32)
[2025-09-11] VITALS (7 sets, daily range): BP systolic 92–159; BP diastolic 50–67; PULSE 65–100; RESP 16–18; TEMP 36.2–36.8; O2SAT 97–100
[2025-09-11] MEDS: QUEtiapine FUMARATE 12.5 MG TABLET PO (00:55)
[2025-09-11] MEDS: HALOPERIDOL LACTATE 5 MG/ML VIAL IM ×2 (04:08→23:10)
--- NOTE | 2025-09-11 05:12 | PC.NURSE ---
Patient was oriented x1, anxious, confused, tried to climb over bed rail was not able to be redirected to from behavior. Bed remained in lowest position. Attempted to reposition and offer light snack. patient refused saying I gotta get outta this bed. Continued to put leg over rail. WehnDr. Singh notified of persistent and inability to remain safely in bed. Haldol 5 mg IM injection Q6H PRN for delirum order given. One-on-one supervision initiated by nurse and rotated with GLOBAL CONSUMER SECTOR VICE PRESIDENT. Call light/belongings within reach, bed maintained in lowest position with zone 2 fall precaution alarm activated. Will continue to monitor patient behavior progress and safety.
--- NOTE | 2025-09-11 08:59 | P.PNCROSS_ITS ---
Event Note Event Note Event Note: I got multiple calls from the nursing staff. The patient was confused and diff icult to redirect. He kept trying to climb other bed despite 1 on 1 health safety coordinator. Patient had received Seroquel 12.5 mg at bedtime and repeat dose given by the mid shift provider of 12.5 mg with no improvement in symptoms. Way bladder scan the patient to rule out some component of urinary retention. Shortly after bladder scan the patient had another large incontinent void so urinary retention seem less likely. The patient likely has advancing dementia. On further chart review nursing did find where the patient's family had wanted the patient to be discharged home with [facility]. I was personally at the bedside for over 30 minute strain to redirect the patient and keep the patient in bed wall evaluating patient's status. Given that conservative measures have failed will start the patient on Haldol 5 mg IM q.6 hours. Initially was going to order IV Haldol but the patient IV infiltrated. Will hold off on replacing IV given that we anticipate the patient being discharged to hospice in the near future. 35 minute spent in critical care activities. This case had a high probability of a clinically significant, sudden, or life threatening deterioration of this patient's condition which required my full and direct attention, intervention and personal management.
[2025-09-11] MEDS: LOSARTAN POTASSIUM 100 MG TABLET BY MOUTH (09:48)
[2025-09-11] MEDS: ASPIRIN 81 MG ENTERIC TABLET PO (09:48)
[2025-09-11] MEDS: MEMANTINE 10 MG TABLET PO ×2 (09:49→17:45)
[2025-09-11] MEDS: INSULIN ASPART (*BKC) 100 UNITS/ML SUB-Q (12:01)
--- NOTE | 2025-09-11 14:34 | P.PNIM_ITS ---
Assessment and Plan Assessment and Plan (1) Altered mental status: Code(s): R41.82 - Altered mental status, unspecified Status: Acute Assessment and Plan: Patient was difficult to arouse felt related to Seroquel 25mg and Zyprexa 5mg IM coupled with his poor sleep pattern prior to admission CT head on admission showing no acute findings. Repeat CT head also showing no acute changes TSH slightly elevated at 5.4 but FT4 normal. PCT, B12, folate normal. Lactic normal. Ammonia <9. Glucose normal. Mental status better so Seroquel 12.5mg HS continued with benefit. More agitated last night but much better today. Continue PT/OT. Advance Seroquel to 25mg HS tonight. (2) Dementia of Alzheimer's type with behavioral disturbance: Code(s): G30.9 - Alzheimer's disease, unspecified; F02.818 - Dementia in other diseases classified elsewhere, unspecified severity, with other behavioral disturbance Status: Acute Assessment and Plan: Patient with dementia on memantine. According to the family he was not sleeping at night and was becoming more aggressive over the last couple days prior to admission. Head CT showing no acute findings. CXR was clear. UA was clear. The family members are considering memory care unit placement for the patient. Hospice also consulted. Care coordination consult greatly appreciated. Advance Seroquel. Continue to follow (3) Anemia: Qualifiers: Anemia type: unspecified type Qualified Code(s): D64.9 - Anemia, unspecified Code(s): D64.9 - Anemia, unspecified Status: Acute Assessment and Plan: Patient with a low grade chronic anemia with Hgb running 11-13 range. Hgb was 10.8 on admission but has improved to the 11-12 range. Normal iron studies in June and normal B12/folate here. Follow (4) BPH with obstruction/lower urinary tract symptoms: Code(s): N40.1 - Benign prostatic hyperplasia with lower urinary tract symptoms; N13.8 - Other obstructive and reflux uropathy Status: Acute Assessment and Plan: Patient with BPH. No clinical evidence of urine retention. Continue with tamsulosin (5) Chronic kidney disease, stage 3b: Code(s): N18.32 - Chronic kidney disease, stage 3b Status: Acute Assessment and Plan: Baseline Cr 1.8-2.2 over the past 2 years. Cr was 2.16 on admission. Cr better at 1.9 Follow renal function, electrolytes and UOP. (6) Type 2 diabetes mellitus with diabetic nephropathy: Qualifiers: Diabetes mellitus correction insulin use: with buttermaker use Qualified Code(s): E11.21 - Type 2 diabetes mellitus with diabetic nephropathy; Z79.4 - buttermaker (current) use of insulin Code(s): E11.21 - Type 2 diabetes mellitus with diabetic nephropathy Status: Acute Assessment and Plan: A1c 6.4%. The patient's blood glucose was reviewed on 09/11 Glucose remains reasonably well controlled and mostly <180. Continue AccuCheks covering with sliding scale. Hypoglycemia protocol available as needed. Holding his home insulin. Add low dose Lantus tonight. Plan Mild Thrombocytopenia - slightly low. B12 okay. Will follow. DVT prophylaxis - SCDs Code status - DNR Subjective Date/time seen: 09/11/25 14:34 Interval history: 80yo male with dementia, CKD and DM here for dementia with aggressive behavior. Patient eating well. Unable to provide hx due to chronic confusion. Patient was given extra Seroquel and then a dose of Haldol for agitation last night. Review of Systems Review of Systems: ROS unobtainable: Yes unobtainable due to mental status Exam Narrative: AF 97.2 108/67 100 18 100% ra Gen - NARD sitting up in chair feeding himself breakfast Chest - clear anteriorly to quiet respirations CV - RRR S1/S2 Abd - Soft, ND, Positive BS Ext - No pedal edema Neuro - alert, talkative, confused. Psych - pleasant; cooperative at times Skin - Warm and dry Objective Data Vital Signs Vital Signs: Vital Signs - 24 hr 09/10/25 16:00 09/10/25 20:00 09/10/25 20:32 Temperature 96.8 F L 98.0 F Pulse Rate 65 68 Respiratory Rate 16 18 Blood Pressure 111/54 L 119/61 Pulse Oximetry 95 90 Oxygen Delivery Room Air 09/11/25 04:00 09/11/25 08:00 09/11/25 12:00 Temperature 97.7 F 97.1 F L 97.2 F L Pulse Rate 70 92 100 Respiratory Rate 18 16 18 Blood Pressure 159/56 H 131/52 L 108/67 Pulse Oximetry 98 97 100 Oxygen Delivery Intake/Output Intake/Output: Intake & Output 09/08/25 09/09/25 09/10/25 09/11/25 23:59 23:59 23:59 23:59 Intake Total 1240 2612 804 Balance 1240 2612 804 Meds/Results Medications: Active Medications Generic Name Dose Route Start Last Admin Trade Name Freq PRN Reason Stop Dose Admin Aspirin 81 mg 09/08/25 09:00 09/11/25 09:48 Aspirin 81 Mg Enteric Tablet PO 81 mg DAILY ANGÉLICA Administration Dextrose 12.5 gm 09/07/25 19:33 Dextrose 50% 25 Gm/50 Ml Syringe IV PUSH PRN PRN Hypoglycemia Protocol Glucagon 1 mg 09/07/25 19:33 Glucagon For Inj 1 Mg Vial IM PRN PRN Hypoglycemia Protocol Glucose 15 gm 09/07/25 19:33 Glucose Oral Gel 15 Gm Of Glucse In 37.5 Gm Tube PO PRN PRN Hypoglycemia Protocol Haloperidol Lactate 5 mg 09/11/25 04:01 09/11/25 04:08 Haloperidol Lactate 5 Mg/Ml Vial IM 5 mg Q6H PRN Administration Delirium Dextrose 1,000 mls @ 100 mls/hr 09/07/25 19:33 Dextrose 5% 1,000 Ml IVPB PRN PRN Hypoglycemia Protocol Insulin Aspart 2 - 5 units 09/08/25 08:00 09/11/25 12:01 Insulin Aspart (*Bkc) 100 Units/Ml SUB-Q 3 units TIDWM ANGÉLICA Administration Protocol Insulin Human Isoph/Insulin Regular 19 units 09/08/25 09:00 09/08/25 15:07 Insulin Human Isophan/Regular 70/30 (*Bkc) 100 Units/Ml SUB-Q Not Given On Hold: 09/08/25 12:55 BID ANGÉLICA Losartan Potassium 100 mg 09/08/25 09:00 09/11/25 09:48 Losartan Potassium 100 Mg Tablet BY MOUTH 100 mg DAILY ANGÉLIAC Administration Memantine 10 mg 09/08/25 09:00 09/11/25 09:49 Memantine 10 Mg Tablet PO 10 mg BID ANGÉLICA Administration Quetiapine Fumarate 12.5 mg 09/08/25 21:00 09/10/25 20:32 Quetiapine Fumarate 12.5 Mg Tablet PO 12.5 mg HS ANGÉLICA Administration Tamsulosin HCl 0.4 mg 09/08/25 17:30 09/10/25 17:15 Tamsulosin Hcl 0.4 Mg Capsule PO 0.4 mg DAILY@1730 [facility] Administration Radiology Results: ITS Impressions Chest X-Ray 09/07/25 21:19 IMPRESSION: No acute pulmonary findings. Head CT 09/08/25 17:54 Impression: 1.No acute intracranial abnormality. Labs Labs: Laboratory Results - last 24 hr 09/10/25 09/10/25 09/11/25 16:52 20:15 08:24 POC Capillary Glucose 153 H 154 H 182 H 09/11/25 11:26 POC Capillary Glucose 270 H
[2025-09-11] MEDS: TAMSULOSIN HCL 0.4 MG CAPSULE PO (17:45)
[2025-09-11] MEDS: INSULIN GLARGINE (*BKC) 100 UNITS/ML 8 UNITS SUB-Q (20:28)
[2025-09-12 04:10] VITALS: BP 133/59; PULSE 75; RESP 18; TEMP 36.4; O2SAT 97
[2025-09-12] MEDS: HALOPERIDOL LACTATE 5 MG/ML VIAL IM (05:01)
[2025-09-12] MEDS: LOSARTAN POTASSIUM 100 MG TABLET BY MOUTH (12:44)
[2025-09-12] MEDS: ASPIRIN 81 MG ENTERIC TABLET PO (12:44)
--- NOTE | 2025-09-12 12:58 | P.PNIM_ITS ---
Assessment and Plan Assessment and Plan (1) Altered mental status: Code(s): R41.82 - Altered mental status, unspecified Status: Acute Assessment and Plan: Patient was difficult to arouse felt related to Seroquel 25mg and Zyprexa 5mg IM coupled with his poor sleep pattern prior to admission CT head on admission showing no acute findings. Repeat CT head also showing no acute changes TSH slightly elevated at 5.4 but FT4 normal. PCT, B12, folate normal. Lactic normal. Ammonia <9. Glucose normal. Mental status better so Seroquel continued then advanced to 25mg HS More agitated last night so received Haldol at 11pm and 5am making it difficult now to wake him up. Continue PT/OT. Change prn Haldol. (2) Dementia of Alzheimer's type with behavioral disturbance: Code(s): G30.9 - Alzheimer's disease, unspecified; F02.818 - Dementia in other diseases classified elsewhere, unspecified severity, with other behavioral disturbance Status: Acute Assessment and Plan: Patient with dementia on memantine. According to the family he was not sleeping at night and was becoming more aggressive over the last couple days prior to admission. Head CT showing no acute findings. CXR was clear. UA was clear. The family members are considering memory care unit placement for the patient. Hospice also consulted. Care coordination consult greatly appreciated. As above. Continue to follow (3) Anemia: Qualifiers: Anemia type: unspecified type Qualified Code(s): D64.9 - Anemia, unspecified Code(s): D64.9 - Anemia, unspecified Status: Acute Assessment and Plan: Patient with a low grade chronic anemia with Hgb running 11-13 range. Hgb was 10.8 on admission but has improved to the 11-12 range. Normal iron studies in June and normal B12/folate here. Follow periodically (4) BPH with obstruction/lower urinary tract symptoms: Code(s): N40.1 - Benign prostatic hyperplasia with lower urinary tract symptoms; N13.8 - Other obstructive and reflux uropathy Status: Acute Assessment and Plan: Patient with BPH. No clinical evidence of urine retention. Continue with tamsulosin (5) Chronic kidney disease, stage 3b: Code(s): N18.32 - Chronic kidney disease, stage 3b Status: Acute Assessment and Plan: Baseline Cr 1.8-2.2 over the past 2 years. Cr was 2.16 on admission. Cr better at 1.9 Follow renal function, electrolytes and UOP. (6) Type 2 diabetes mellitus with diabetic nephropathy: Qualifiers: Diabetes mellitus predatory animal exterminator insulin use: with predatory animal exterminator use Qualified Code(s): E11.21 - Type 2 diabetes mellitus with diabetic nephropathy; Z79.4 - oil heaterman (current) use of insulin Code(s): E11.21 - Type 2 diabetes mellitus with diabetic nephropathy Status: Acute Assessment and Plan: A1c 6.4%. The patient's blood glucose was reviewed on 09/12 Glucose remains reasonably well controlled and mostly <180. Continue AccuCheks covering with sliding scale. Hypoglycemia protocol available as needed. Holding his home insulin. Continue Lantus Plan Mild Thrombocytopenia - slightly low. B12 okay. Will follow periodically. DVT prophylaxis - SCDs Code status - DNR Subjective Date/time seen: 09/12/25 12:58 Interval history: 80yo male with dementia, CKD and DM here for dementia with aggressive behavior. Patient unable to provide hx due to chronic confusion. Patient received 2 doses of Haldol overnight due to agitation. Review of Systems Review of Systems: ROS unobtainable: Yes unobtainable due to mental status Exam Narrative: AF 97.6 133/59 76 18 97% ra Gen - NARD Chest - clear anteriorly to quiet respirations CV - RRR S1/S2 Abd - Soft, ND, Positive BS Ext - No pedal edema Neuro - poorly responsive. Resists part of the exam. PALACIOS. Psych - unable to assess Skin - Warm and dry Objective Data Vital Signs Vital Signs: Vital Signs - 24 hr 09/11/25 16:00 09/11/25 19:45 09/11/25 20:17 Temperature 98.0 F 98.3 F 98.3 F Pulse Rate 73 78 78 Respiratory Rate 16 17 18 Blood Pressure 109/54 L 110/57 L Pulse Oximetry 100 100 98 Oxygen Delivery 09/11/25 20:28 09/11/25 23:35 09/12/25 04:10 Temperature 98.1 F 97.6 F Pulse Rate 65 75 Respiratory Rate 16 18 Blood Pressure 92/50 L 133/59 L Pulse Oximetry 99 97 Oxygen Delivery Room Air Intake/Output Intake/Output: Intake & Output 09/09/25 09/10/25 09/11/2525 23:59 23:59 23:59 23:59 Intake Total 1240 2612 1044 0 Balance 1240 2612 1044 0 Meds/Results Medications: Active Medications Generic Name Dose Route Start Last Admin Trade Name Freq PRN Reason Stop Dose Admin Aspirin 81 mg 09/08/25 09:00 09/12/25 12:44 Aspirin 81 Mg Enteric Tablet PO 81 mg DAILY ANGÉLICA Administration Dextrose 12.5 gm 09/07/25 19:33 Dextrose 50% 25 Gm/50 Ml Syringe IV PUSH PRN PRN Hypoglycemia Protocol Glucagon 1 mg 09/07/25 19:33 Glucagon For Inj 1 Mg Vial IM PRN PRN Hypoglycemia Protocol Glucose 15 gm 09/07/25 19:33 Glucose Oral Gel 15 Gm Of Glucse In 37.5 Gm Tube PO PRN PRN Hypoglycemia Protocol Haloperidol Lactate 5 mg 09/11/25 04:01 09/12/25 05:01 Haloperidol Lactate 5 Mg/Ml Vial IM 5 mg Q6H PRN Administration Delirium Dextrose 1,000 mls @ 100 mls/hr 09/07/25 19:33 Dextrose 5% 1,000 Ml IVPB PRN PRN Hypoglycemia Protocol Insulin Aspart 2 - 5 units 09/08/25 08:00 09/12/25 12:37 Insulin Aspart (*Bkc) 100 Units/Ml SUB-Q Not Given TIDWM [facility] Protocol Insulin Glargine 8 units 09/11/25 21:00 09/11/25 20:28 Insulin Glargine (*Bkc) 100 Units/Ml SUB-Q 8 units HS ANGÉLICA Administration Losartan Potassium 100 mg 09/08/25 09:00 09/12/25 12:44 Losartan Potassium 100 Mg Tablet BY MOUTH 100 mg DAILY ANGÉLICA Administration Memantine 10 mg 09/08/25 09:00 09/12/25 12:37 Memantine 10 Mg Tablet PO Not Given BID ANGÉLICA Quetiapine Fumarate 25 mg 09/11/25 21:00 09/11/25 20:28 Quetiapine Fumarate 25 Mg Tablet PO 25 mg HS ANGÉLICA Administration Tamsulosin HCl 0.4 mg 09/08/25 17:30 09/11/25 17:45 Tamsulosin Hcl 0.4 Mg Capsule PO 0.4 mg DAILY@1730 ANGÉLICA Administration Radiology Results: ITS Impressions Chest X-Ray 09/07/25 21:19 IMPRESSION: No acute pulmonary findings. Head CT 09/08/25 17:54 Impression: 1.No acute intracranial abnormality. Labs Labs: Laboratory Results - last 24 hr 09/11/25 09/11/25 09/12/25 16:33 19:45 08:10 POC Capillary Glucose 174 H 258 H 157 H 09/12/25 11:58 POC Capillary Glucose 151 H
[2025-09-12 15:00] VITALS: BP 107/60; PULSE 71; RESP 16; TEMP 36.1; O2SAT 100
[2025-09-12] MEDS: MEMANTINE 10 MG TABLET PO (17:19)
[2025-09-12] MEDS: TAMSULOSIN HCL 0.4 MG CAPSULE PO (17:19)
[2025-09-12] MEDS: INSULIN GLARGINE (*BKC) 100 UNITS/ML 8 UNITS SUB-Q (21:22)
[2025-09-12 22:14] VITALS: BP 129/88; PULSE 71; RESP 17; TEMP 36.1; O2SAT 99
[2025-09-12] MEDS: HALOPERIDOL LACTATE 5 MG/ML VIAL 2.5 MG IM (22:33)
[2025-09-13 07:00] VITALS: BP 113/91; PULSE 112; RESP 20; TEMP 36.3; O2SAT 92
[2025-09-13] MEDS: ASPIRIN 81 MG ENTERIC TABLET PO (08:21)
[2025-09-13] MEDS: MEMANTINE 10 MG TABLET PO ×2 (08:23→17:47)
[2025-09-13] MEDS: LOSARTAN POTASSIUM 100 MG TABLET BY MOUTH (08:36)
[2025-09-13] MEDS: INSULIN ASPART (*BKC) 100 UNITS/ML SUB-Q (11:49)
[2025-09-13 15:00] VITALS: BP 115/95; PULSE 112; RESP 18; TEMP 36.2; O2SAT 92
--- NOTE | 2025-09-13 15:35 | PM.DS ---
DS: Admitting Diagnosis Discharge Date 09/13/25 Admitting Diagnosis Dementia with aggressive behavior DS: Discharge Diagnosis Discharge Diagnosis (1) Altered mental status: Code(s): R41.82 - Altered mental status, unspecified Status: Acute (2) Dementia of Alzheimer's type with behavioral disturbance: Code(s): G30.9 - Alzheimer's disease, unspecified; F02.818 - Dementia in other diseases classified elsewhere, unspecified severity, with other behavioral disturbance Status: Acute (3) Anemia: Qualifiers: Anemia type: unspecified type Qualified Code(s): D64.9 - Anemia, unspecified Code(s): D64.9 - Anemia, unspecified Status: Acute (4) BPH with obstruction/lower urinary tract symptoms: Code(s): N40.1 - Benign prostatic hyperplasia with lower urinary tract symptoms; N13.8 - Other obstructive and reflux uropathy Status: Acute (5) Chronic kidney disease, stage 3b: Code(s): N18.32 - Chronic kidney disease, stage 3b Status: Acute (6) Type 2 diabetes mellitus with diabetic nephropathy: Qualifiers: Diabetes mellitus remote computer terminal operator insulin use: with fci use Qualified Code(s): E11.21 - Type 2 diabetes mellitus with diabetic nephropathy; Z79.4 - terminal computer operator (current) use of insulin Code(s): E11.21 - Type 2 diabetes mellitus with diabetic nephropathy Status: Acute DS: Summary Hospital Course Reason for hospitalization: 80yo male with dementia, CKD and DM here for dementia with aggressive behavior. Please see H&P for details Hospital Course: The following medical conditions were addressed during his hospital course: (1) Altered mental status: Patient was difficult to arouse felt related to Seroquel 25mg and Zyprexa 5mg IM coupled with his poor sleep pattern prior to admission CT head on admission showing no acute findings. Repeat CT head also showing no acute changes TSH slightly elevated at 5.4 but FT4 normal. PCT, B12, folate normal. Lactic normal. Ammonia <9. Glucose normal. Mental status better so Seroquel continued then advanced to 25mg HS More agitated last night so received Haldol at 11pm and 5am making it difficult now to wake him up. Continue PT/OT. Change prn Haldol. (2) Dementia of Alzheimer's type with behavioral disturbance: Patient with dementia on memantine. According to the family he was not sleeping at night and was becoming more aggressive over the last couple days prior to admission. Head CT showing no acute findings. CXR was clear. UA was clear. The family members are considering memory care unit placement for the patient. Hospice also consulted. Care coordination consult greatly appreciated. As above. Continue to follow (3) Anemia: Patient with a low grade chronic anemia with Hgb running 11-13 range. Hgb was 10.8 on admission but has improved to the 11-12 range. Normal iron studies in June and normal B12/folate here. Follow periodically (4) BPH with obstruction/lower urinary tract symptoms: Patient with BPH. No clinical evidence of urine retention. Continue with tamsulosin (5) Chronic kidney disease, stage 3b: Baseline Cr 1.8-2.2 over the past 2 years. Cr was 2.16 on admission. Cr better at 1.9 Follow renal function, electrolytes and UOP. (6) Type 2 diabetes mellitus with diabetic nephropathy: A1c 6.4%. The patient's blood glucose was reviewed on 09/12 Glucose remains reasonably well controlled and mostly <180. Continue AccuCheks covering with sliding scale. Hypoglycemia protocol available as needed. Holding his home insulin. Continue Lantus (7) Mild Thrombocytopenia: Platelets are slightly low. B12 okay. Will follow periodically. Patient was accepted by [facility] hospice. Patient was able be discharged home on hospice on 09/13/2025. Status at Discharge Cognitive/behavioral status at discharge: stable. Time Spent with Patient Time attestation: Total time spent providing and/or coordinating discharge services: 34 minutes Time spent: Greater than 30 minutes Exam Narrative: AF 97.2 115/95 112 18 92% ra Gen - NARD Chest - clear anteriorly to quiet respirations CV - RRR S1/S2 Abd - Soft, ND, Positive BS Ext - No pedal edema Neuro - arouses to voice but somnolent Psych - unable to assess Skin - Warm and dry DS: Data Data Completed and Pending Labs on day of discharge: Labs from last 24 hours 09/13/25 09/13/25 09/12/25 11:31 07:41 21:18 POC Capillary Glucose 218 H 134 H 215 H 09/12/25 16:11 POC Capillary Glucose 165 H Discharge Plan Discharge Attending physician on discharge: Girish Huber Discharging Clinician: Girish Huber Anticipated Discharge Date/Time: 09/13/25 17:20 Patient Disposition: Hospice - Home Activity: as tolerated Diet: regular Discharge Instructions: Hospice to follow at home Comfort measures Patient Language: Turkmen Stand Alone Forms: General Discharge Information Discharge Medications: New quetiapine [Seroquel] 25 mg Tablet 25 mg PO HS Qty: 30 0RF Continued aspirin [Adult Aspirin Regimen] 81 mg tablet,delayed release (DR/EC) 81 mg PO DAILY losartan 100 mg tablet See Rx Instructions .ROUTE .COMPLEX Qty: 90 1RF Dose Instruction: TAKE 1 TABLET BY MOUTH EVERY DAY Rx Instructions: TAKE 1 TABLET BY MOUTH EVERY DAY tamsulosin [Flomax] 0.4 mg capsule 0.4 mg PO .COMPLEX Qty: 90 3RF Rx Instructions: 0.4 mg PO 1/2 hour after a meal; memantine 10 mg tablet 10 mg PO BID Qty: 180 3RF Discontinued (DME) insulin syringe-needle U-100 [BD Insulin Syringe] 0.3 mL 29 gauge x 1/2 syringe See Rx Instructions .Route Qty: 100 0RF Rx Instructions: As directed for insulin use Novolin 70/30 U-100 Insulin 100 unit/mL (70-30) suspension 23 unit subcut BID Qty: 30 2RF (DME) FreeStyle Kyree 2 Plus Sensor Device See Rx Instructions .Route Qty: 6 0RF Rx Instructions: As directed Date of admission: 09/07/25 18:46 Primary Care Provider: James Ponce Admitting Provider: Pal Cho Attending physician on admission: Pal Cho Condition: Stable Hospitalist MIPS Heart Failure (Exclusion) Patient has history of Heart Transplant or Left Ventricular Assistive Device?: No IF YES, STOP HERE Heart Failure (Qualifier) Patient has current or prior documentation of LVEF less than or equal to 40%, or mod/servere depressed LVSF?: No IF NO, STOP HERE
[2025-09-13] MEDS: TAMSULOSIN HCL 0.4 MG CAPSULE PO (17:47)
--- NOTE | 2025-09-13 17:53 | PM.IMPN2 ---
Assessment and Plan Assessment and Plan (1) Altered mental status: Code(s): R41.82 - Altered mental status, unspecified Status: Acute Assessment and Plan: Patient was difficult to arouse felt related to Seroquel 25mg and Zyprexa 5mg IM coupled with his poor sleep pattern prior to admission CT head on admission showing no acute findings. Repeat CT head also showing no acute changes TSH slightly elevated at 5.4 but FT4 normal. PCT, B12, folate normal. Lactic normal. Ammonia <9. Glucose normal. Mental status better so Seroquel continued then advanced to 25mg HS Family has signed patient up for hospice at home. There was some confusion about discharge readiness. Family feels that hospice has not set up everything that is required but Care Coordination felt everything was arranged. Discussed with family at bedside and plan to hold patient overnight and clarify discharge plan in the morning. Continue PT/OT. Continue Seroquel (2) Dementia of Alzheimer's type with behavioral disturbance: Code(s): G30.9 - Alzheimer's disease, unspecified; F02.818 - Dementia in other diseases classified elsewhere, unspecified severity, with other behavioral disturbance Status: Acute Assessment and Plan: Patient with dementia on memantine. According to the family he was not sleeping at night and was becoming more aggressive over the last couple days prior to admission. Head CT showing no acute findings. CXR was clear. UA was clear. The family members decided on home with Hospice Care coordination consult greatly appreciated. As above. Continue to follow (3) Anemia: Qualifiers: Anemia type: unspecified type Qualified Code(s): D64.9 - Anemia, unspecified Code(s): D64.9 - Anemia, unspecified Status: Acute Assessment and Plan: Patient with a low grade chronic anemia with Hgb running 11-13 range. Hgb was 10.8 on admission but has improved to the 11-12 range. Normal iron studies in June and normal B12/folate here. Follow periodically (4) BPH with obstruction/lower urinary tract symptoms: Code(s): N40.1 - Benign prostatic hyperplasia with lower urinary tract symptoms; N13.8 - Other obstructive and reflux uropathy Status: Acute Assessment and Plan: Patient with BPH. No clinical evidence of urine retention. Continue with tamsulosin (5) Chronic kidney disease, stage 3b: Code(s): N18.32 - Chronic kidney disease, stage 3b Status: Acute Assessment and Plan: Baseline Cr 1.8-2.2 over the past 2 years. Cr was 2.16 on admission. Cr better at 1.9 (6) Type 2 diabetes mellitus with diabetic nephropathy: Qualifiers: Diabetes mellitus terminal carman insulin use: with terminal carman use Qualified Code(s): E11.21 - Type 2 diabetes mellitus with diabetic nephropathy; Z79.4 - intermediate teacher (current) use of insulin Code(s): E11.21 - Type 2 diabetes mellitus with diabetic nephropathy Status: Acute Assessment and Plan: A1c 6.4%. The patient's blood glucose was reviewed on 09/12 Glucose remains reasonably well controlled and mostly <180. He did drop to 49 but was asymptomatic and felt related to the sliding insulin dose he received earlier in the day. Continue AccuCheks covering with sliding scale. Hypoglycemia protocol available as needed. Holding his home insulin. Continue Lantus but at lower dose. Plan Mild Thrombocytopenia - slightly low. B12 okay. Will follow periodically. DVT prophylaxis - SCDs Code status - DNR Subjective Date/time seen: 09/13/25 17:53 Interval history: 80yo male with dementia, CKD and DM here for dementia with aggressive behavior. Patient unable to provide hx due to chronic confusion. Review of Systems Review of Systems: ROS unobtainable: Yes unobtainable due to mental status Exam Narrative: AF 97.2 115/95 112 18 92% ra Gen - NARD Chest - clear anteriorly to quiet respirations CV - RRR S1/S2 Abd - Soft, ND, Positive BS Ext - No pedal edema Neuro - arouses to voice but somnolent Psych - unable to assess Skin - Warm and dry Objective Data Vital Signs Vital Signs: Vital Signs - 24 hr 09/12/25 21:27 09/12/25 22:14 09/13/25 07:00 Temperature 97.0 F L 97.4 F L Pulse Rate 71 112 H Respiratory Rate 17 20 Blood Pressure 129/88 113/91 H Pulse Oximetry 99 92 Oxygen Delivery Room Air 09/13/25 08:21 09/13/25 15:00 Temperature 97.2 F L Pulse Rate 112 H Respiratory Rate 18 Blood Pressure 115/95 H Pulse Oximetry 92 Oxygen Delivery Room Air Intake/Output Intake/Output: Intake & Output 09/10/25 09/11/25 09/12/25 12/22/25 23:59 23:59 23:59 23:59 Intake Total 2612 1044 480 760 Balance 2612 1044 708 760 Meds/Results Medications: Active Medications Generic Name Dose Route Start Last Admin Trade Name Freq PRN Reason Stop Dose Admin Acetaminophen 650 mg 09/12/25 17:08 Acetaminophen 325 Mg Tablet PO Q6H PRN Mild Pain (1-3) or Fever Aspirin 81 mg 09/08/25 09:00 09/13/25 08:21 Aspirin 81 Mg Enteric Tablet PO 81 mg DAILY ANGÉLICA Administration Dextrose 12.5 gm 09/07/25 19:33 Dextrose 50% 25 Gm/50 Ml Syringe IV PUSH PRN PRN Hypoglycemia Protocol Glucagon 1 mg 09/07/25 19:33 Glucagon For Inj 1 Mg Vial IM PRN PRN Hypoglycemia Protocol Glucose 15 gm 09/07/25 19:33 Glucose Oral Gel 15 Gm Of Glucse In 37.5 Gm Tube PO PRN PRN Hypoglycemia Protocol Haloperidol Lactate 2.5 mg 09/12/25 13:07 09/12/25 22:33 Haloperidol Lactate 5 Mg/Ml Vial IM 2.5 mg HS PRN Administration Delirium Dextrose 1,000 mls @ 100 mls/hr 09/07/25 19:33 Dextrose 5% 1,000 Ml IVPB PRN PRN Hypoglycemia Protocol Insulin Aspart 2 - 5 units 09/08/25 08:00 09/13/25 17:40 Insulin Aspart (*Bkc) 100 Units/Ml SUB-Q Not Given TIDWM ANGÉLICA Protocol Insulin Glargine 8 units 09/11/25 21:00 09/12/25 21:22 Insulin Glargine (*Bkc) 100 Units/Ml SUB-Q 8 units HS ANGÉLICA Administration Losartan Potassium 100 mg 09/08/25 09:00 09/13/25 08:36 Losartan Potassium 100 Mg Tablet BY MOUTH 100 mg DAILY ANGÉLICA Administration Memantine 10 mg 09/08/25 09:00 09/13/25 17:47 Memantine 10 Mg Tablet PO 10 mg BID ANGÉLICA Administration Quetiapine Fumarate 25 mg 09/11/25 21:00 09/12/25 21:22 Quetiapine Fumarate 25 Mg Tablet PO 25 mg HS ANGÉLICA Administration Tamsulosin HCl 0.4 mg 09/08/25 17:30 09/13/25 17:47 Tamsulosin Hcl 0.4 Mg Capsule PO 0.4 mg DAILY@5920 ANGÉLICA Administration Radiology Results: ITS Impressions Chest X-Ray 09/07/25 21:19 IMPRESSION: No acute pulmonary findings. Head CT 09/08/25 17:54 Impression: 1.No acute intracranial abnormality. Labs Labs: Laboratory Results - last 24 hr 09/12/25 09/13/25 09/13/25 21:18 07:41 11:31 POC Capillary Glucose 215 H 134 H 218 H 09/13/25 09/13/25 16:42 17:24 POC Capillary Glucose 49 L* 157 H
[2025-09-13] MEDS: ACETAMINOPHEN 325 MG TABLET 650 MG PO (20:50)
[2025-09-13] MEDS: HALOPERIDOL LACTATE 5 MG/ML VIAL 2.5 MG IM (21:01)
[2025-09-13] MEDS: INSULIN GLARGINE (*BKC) 100 UNITS/ML SUB-Q (21:15)
[2025-09-13 22:51] VITALS: BP 149/58; PULSE 119; RESP 20; TEMP 36.7; O2SAT 97
[2025-09-14 06:20] VITALS: BP 140/69; PULSE 68; RESP 18; TEMP 36.6; O2SAT 98
[2025-09-14] MEDS: MEMANTINE 10 MG TABLET PO (08:08)
[2025-09-14] MEDS: LOSARTAN POTASSIUM 100 MG TABLET BY MOUTH (08:08)
[2025-09-14] MEDS: ASPIRIN 81 MG ENTERIC TABLET PO (08:08)
--- NOTE | 2025-09-14 08:28 | PCNWS ---
Weekly nutritional screen. Patient is tolerating current regular diet with adequate intake 100% all meals. No weight loss reported. No nutritional recommendations at this time.
[2025-09-14] MEDS: INSULIN ASPART (*BKC) 100 UNITS/ML SUB-Q (11:25)
--- NOTE | 2025-09-14 12:29 | P.DS_ITS ---
DS: Admitting Diagnosis Discharge Date 09/14/25 Admitting Diagnosis Dementia with aggressive behavior DS: Discharge Diagnosis Discharge Diagnosis (1) Altered mental status: Code(s): R41.82 - Altered mental status, unspecified Status: Acute (2) Dementia of Alzheimer's type with behavioral disturbance: Code(s): G30.9 - Alzheimer's disease, unspecified; F02.818 - Dementia in other diseases classified elsewhere, unspecified severity, with other behavioral disturbance Status: Acute (3) Anemia: Qualifiers: Anemia type: unspecified type Qualified Code(s): D64.9 - Anemia, unspecified Code(s): D64.9 - Anemia, unspecified Status: Acute (4) BPH with obstruction/lower urinary tract symptoms: Code(s): N40.1 - Benign prostatic hyperplasia with lower urinary tract symptoms; N13.8 - Other obstructive and reflux uropathy Status: Acute (5) Chronic kidney disease, stage 3b: Code(s): N18.32 - Chronic kidney disease, stage 3b Status: Acute (6) Type 2 diabetes mellitus with diabetic nephropathy: Qualifiers: Diabetes mellitus superintendent container terminal insulin use: with fpc use Qualified Code(s): E11.21 - Type 2 diabetes mellitus with diabetic nephropathy; Z79.4 - termination clerk (current) use of insulin Code(s): E11.21 - Type 2 diabetes mellitus with diabetic nephropathy Status: Acute DS: Summary Hospital Course Reason for hospitalization: 80yo male with dementia, CKD and DM here for dementia with aggressive behavior. Please see H&P for details Hospital Course: The following medical conditions were addressed during his hospital course: (1) Altered mental status: Patient was difficult to arouse felt related to Seroquel 25mg and Zyprexa 5mg IM coupled with his poor sleep pattern prior to admission CT head on admission showing no acute findings. Repeat CT head also showing no acute changes TSH slightly elevated at 5.4 but FT4 normal. PCT, B12, folate normal. Lactic normal. Ammonia <9. Glucose normal. Mental status better so Seroquel continued then advanced to 25mg HS Mental status improved overall. PT/OT ordered. (2) Dementia of Alzheimer's type with behavioral disturbance: Patient with dementia on memantine. According to the family he was not sleeping at night and was becoming more aggressive over the last couple days prior to admission. Head CT showing no acute findings. CXR was clear. UA was clear. The family members were considering memory care unit placement but decided on home with Hospice Care coordination consult greatly appreciated. (3) Anemia: Patient with a low grade chronic anemia with Hgb running 11-13 range. Hgb was 10.8 on admission but has improved to the 11-12 range. Normal iron studies in June and normal B12/folate here. (4) BPH with obstruction/lower urinary tract symptoms: Patient with BPH. No clinical evidence of urine retention. We continued with tamsulosin (5) Chronic kidney disease, stage 3b: Baseline Cr 1.8-2.2 over the past 2 years. Cr was 2.16 on admission. Cr better at 1.9 (6) Type 2 diabetes mellitus with diabetic nephropathy: A1c 6.4%. The patient's blood glucose was monitored with AccuCheks covering with sliding scale. Hypoglycemia protocol available as needed. Holding his home insulin. (7) Mild Thrombocytopenia: Platelets are slightly low. B12 okay. Patient was accepted by [facility]. Patient was able be discharged home on hospice on 09/14/2025. Status at Discharge Cognitive/behavioral status at discharge: stable. Time Spent with Patient Time attestation: Total time spent providing and/or coordinating discharge services: 31 minutes Time spent: Greater than 30 minutes Exam Narrative: AF 97.9 140/69 68 18 98% ra Gen - NARD Chest - clear anteriorly CV - RRR S1/S2 Abd - Soft, ND, Positive BS Ext - No pedal edema Neuro - awake, alert, talkative. Confused Psych - calm and occasionally cooperative Skin - Warm and dry DS: Data Data Completed and Pending Labs on day of discharge: Labs from last 24 hours 09/14/25 09/14/25 09/13/25 11:18 07:21 21:00 POC Capillary Glucose 297 H 159 H 174 H 09/13/25 09/13/25 17:24 16:42 POC Capillary Glucose 157 H 49 L* Discharge Plan Discharge Attending physician on discharge: Girish Huber Discharging Clinician: Girish Huber Anticipated Discharge Date/Time: 09/13/25 17:20 Patient Disposition: Hospice - Home Activity: as tolerated Diet: regular Discharge Instructions: Hospice to follow at home Easy to chew Level 7 diet Comfort measures Patient Language: Togolese Stand Alone Forms: General Discharge Information Discharge Medications: New quetiapine [Seroquel] 25 mg Tablet 25 mg PO HS Qty: 30 0RF Continued aspirin [Adult Aspirin Regimen] 81 mg tablet,delayed release (DR/EC) 81 mg PO DAILY losartan 100 mg tablet See Rx Instructions .ROUTE .COMPLEX Qty: 90 1RF Dose Instruction: TAKE 1 TABLET BY MOUTH EVERY DAY Rx Instructions: TAKE 1 TABLET BY MOUTH EVERY DAY tamsulosin [Flomax] 0.4 mg capsule 0.4 mg PO .COMPLEX Qty: 90 3RF Rx Instructions: 0.4 mg PO 1/2 hour after a meal; memantine 10 mg tablet 10 mg PO BID Qty: 180 3RF Discontinued (DME) insulin syringe-needle U-100 [BD Insulin Syringe] 0.3 mL 29 gauge x 1/2 syringe See Rx Instructions .Route Qty: 100 0RF Rx Instructions: As directed for insulin use Novolin 70/30 U-100 Insulin 100 unit/mL (70-30) suspension 23 unit subcut BID Qty: 30 2RF (DME) FreeStyle Kyree 2 Plus Sensor Device See Rx Instructions .Route Qty: 6 0RF Rx Instructions: As directed Date of admission: 09/07/25 18:46 Primary Care Provider: James Ponce Admitting Provider: Pal Cho Attending physician on admission: Pal Cho Condition: Stable Hospitalist MIPS Heart Failure (Exclusion) Patient has history of Heart Transplant or Left Ventricular Assistive Device?: No IF YES, STOP HERE Heart Failure (Qualifier) Patient has current or prior documentation of LVEF less than or equal to 40%, or mod/servere depressed LVSF?: No IF NO, STOP HERE
[2025-09-14 14:02] VITALS: BP 113/91; PULSE 87; RESP 20; TEMP 35.9; O2SAT 100
== END 2025-09-14 14:35 | disposition hospice, home (50) ==
LOC: ANHED 15:59 → ANH3MEDSUR 17:50
PROVIDERS: Nurse Practitioner; Admitting Provider Internal Medicine; Emergency Provider Student in an Organized Health Care Education/Training Program; PCP Family Medicine; Visit Provider Internal Medicine
DX: G30.9 Alzheimer's disease, unspecified (principal); F02.811 Dementia in other diseases classified elsewhere, unspecified severity, with agitation; N13.8 Other obstructive and reflux uropathy; D64.9 Anemia, unspecified; N40.1 Benign prostatic hyperplasia with lower urinary tract symptoms; E11.22 Type 2 diabetes mellitus with diabetic chronic kidney disease; N18.32 Chronic kidney disease, stage 3b; D69.6 Thrombocytopenia, unspecified; E55.9 Vitamin D deficiency, unspecified; Z79.4 Long term (current) use of insulin; E78.00 Pure hypercholesterolemia, unspecified; I12.9 Hypertensive chronic kidney disease with stage 1 through stage 4 chronic kidney disease, or unspecified chronic kidney disease; E11.21 Type 2 diabetes mellitus with diabetic nephropathy; Z87.891 Personal history of nicotine dependence
CPT/HCPCS: 36415; 70450; 71045; 80048; 80053; 81001; 82140; 82607; 82746; 82948; 83036; 83605; 84145; 84439; 84443; 84480; 85014; 85018; 85025; 85027; 93005; 96360; 96361; 96372; 97161; 97165; 97535; 99285; A9270; G0378; J1630; J1815; J2359; J7042